=== PATIENT | female | born 1985 | race Caucasian/White ===

== ENCOUNTER 2022-06-21 09:00 | Emergency (ER) | payer BC, SELFPAY ==
[2022-06-21 09:02] VITALS: BP 155/94; PULSE 79; RESP 14; TEMP 35.9; O2SAT 100; BMI 35.2
--- NOTE | 2022-06-21 09:21 | EKG12_ITS ---
Test Reason : Blood Pressure : / mmHG Vent. Rate : 071 BPM Atrial Rate : 071 BPM P-R Int : 194 ms QRS Dur : 084 ms QT Int : 382 ms P-R-T Axes : 013 -28 047 degrees QTc Int : 415 ms Sinus rhythm with marked sinus arrhythmia Otherwise normal ECG Confirmed by OSCAR MOTT, JAMISON ([id number]), greeting card editor JYOTI CEBALLOS ([id number]) on 06/25/2022 11:01:29 AM Referred By: SAMEERA Confirmed By:BJ MOORE MD
--- NOTE | 2022-06-21 09:21 | RAD_ITS ---
STUDY: X-RAY CHEST REASON FOR EXAM: Female, 37 years old. Chest pain TECHNIQUE: Single AP portable view of the chest. COMPARISON: None. FINDINGS: EKG electrodes are seen. The lungs are clear and expanded. There is no demonstrated pleural abnormality. Normal size heart. Normal mediastinum and eulogio. Normal visualized pulmonary arteries. Normal visualized aortic arch and descending thoracic aorta. Normal visualized thoracic spine. Normal visualized ribs, clavicles, and shoulders. There is no demonstrated abnormality of the visualized soft tissue structures of the upper abdomen. RAD/Chest 1 View (Portable) IMPRESSION: Normal x-ray examination of the chest. Electronically Signed: Jesus Rascon MD at 10:04 RUST ,
--- NOTE | 2022-06-21 09:22 | ED.VIS.CHEST ---
HPI History of Present Illness Chief Complaint: Chest Pain Informant: patient Narrative Narrative: 37-year-old female presents to the emergency room with left chest pain after being referred here by urgent care. Patient states for the past month she has had increased into dull digestion and belching seem to get better but now for the past 3 days she has had a pain in her left breast. She has had a prior lump there in the past and saw her [employer] yesterday who is scheduled for mammography. She states that today she went to see her primary care doctor because the pain is radiating around the breast and into the left shoulder. She notes some shortness of breath. She states that because she had not seen her primary care doctor for 2 years they sent her to the urgent care. At the urgent care the PA ordered an EKG and sent her here out of concern. EKG I reviewed was a normal sinus rhythm with no concerning features of ACS. Patient states that nothing seems to make this better or worse. Her mom had a heart attack. [facility] Medical History Back pain Chest pain Endometriosis Migraines Home Medications calcium carbonate 300 mg (750 mg) chewable tablet (Antacid Extra Strength (calcium carb)) 300 mg PO BID 09/12/19 [History Last Taken Unknown] ibuprofen 200 mg capsule 200 mg PO Q6H PRN 09/12/19 [History Last Taken Unknown] loratadine 10 mg capsule 10 mg PO DAILY 09/12/19 [History Last Taken Unknown] Allergy/AdvReac Type Severity Reaction Status Date / Time No Known Allergies Allergy Verified 06/21/22 09:42 Family History Other Diabetes Heart disease Surgical History H/O section History of dilation and curettage History of hysteroscopy Social History Smoking Status: Current every day smoker tobacco type: cigarettes alcohol intake: current alcohol intake frequency: a few times a week Alcohol type: hard liquor ROS ROS ED Constitutional Constitutional ED: Denies chills or weight loss Eyes Eyes: Denies change in vision or diplopia ENT ENT ED: Denies ear pain, rhinorrhea or sore throat Cardiovascular Cardiovascular: Reports chest pain; Denies orthopnea, palpitations or racing heartbeat Respiratory/Chest Respiratory/Chest: Reports dyspnea; Denies cough or orthopnea Gastrointestinal Gastrointestinal: Denies abdominal pain, diarrhea, nausea or vomiting Genitourinary Genitourinary ED: Denies dysuria, hematuria or urinary frequency Musculoskeletal Musculoskeletal: Denies arthralgias or myalgias Integumentary Denies abscess or rash Neurologic Neurologic: Denies headache(s) or weakness Psychiatric Psychiatric: Denies anxiety, depression, suicidal ideation or suicidal thoughts Endocrine Endocrinology: Denies polydipsia, polyphagia or polyuria Allergic/Immunologic Allergic/Immunologic ED: Denies mouth swelling, tongue swelling or urticaria EXAM Physical Exam Const Vital Signs: 06/21/22 09:02 06/21/22 09:40 Temperature 96.7 F L Temperature Source Temporal Pulse Rate 79 Respiratory Rate 14 Respiratory Effort Normal Non-Labored Blood Pressure 155/94 H Blood Pressure Mean 114 Pulse Ox 100 Oxygen Delivery Method Room Air Positive well nourished and well developed General Appearance ED: well developed HEENT Reports normocephalic, head/scalp atraumatic and moist mucous membranes Eyes PERRL and EOMs intact bilaterally Neck no lymphadenopathy, supple and no JVD Resp normal respiratory effort and clear to auscultation bilaterally Cardio regular rate, regular rhythm and no murmurs GI normal to inspection, nondistended, normoactive bowel sounds and non-tender Palpation: soft Back/Spine no CVA tenderness and normal ROM Extremity normal to inspection General Extremety ED: Negative for edema General Extremity: Negative for edema Neuro oriented x3 and CN's II-XII intact bilaterally Sensorium / Orientation: alert Motor Exam: strength 5/5 throughout Psych mental status grossly normal Mood & Affect: Negative for depressed or tearful Skin no rashes or lesions noted and no wounds MDM MDM MDM Narrative Medical decision making narrative: D-dimer and troponin are within normal limits. CBC shows a hemoglobin 11.2. BMP is normal except for glucose of 110. My interpretation of the chest x-ray is no acute process. Her EKG is a sinus rhythm with sinus arrhythmia but there is no concerning features of ACS and she has not had any dysrhythmias on the monitor. From a cardiac standpoint I think she is fine. We will start her on some Protonix for her indigestion/belching. She has an appointment with primary care next Friday Lab Data Attestation: I reviewed the patient's lab results. Labs: Laboratory Results - last 24 hr 06/21/22 06/21/22 06/21/22 09:35 09:35 09:35 WBC 5.8 RBC 4.08 L Hgb 11.2 L Hct 36.3 L MCV 89.0 MCH 27.5 MCHC 30.9 L RDW Std Deviation 45.5 H RDW Coeff of Nadege 14.0 Plt Count 314 MPV 9.8 Immature Gran % (Auto) 0.200 Neut % (Auto) 73.2 H Lymph % (Auto) 17.2 L [place] % (Auto) 7.5 Eos % (Auto) 1.6 Baso % (Auto) 0.3 Absolute Neuts (auto) 4.2 Absolute Lymphs (auto) 0.99 Nucleated RBC % 0 D-Dimer Quant (PE/DVT) 0.30 Sodium 139 Potassium 3.9 Chloride 108 H Carbon Dioxide 25.0 Anion Gap 6 BUN 11 Creatinine 0.65 Estim Creat Clear Calc 88.55 Est GFR (MDRD) Af Amer 131 Est GFR (MDRD) Non-Af 108 BUN/Creatinine Ratio 16.9 Glucose 110 H Calcium 9.4 Troponin I High Sens 4 Radiography Diagnostic Testing: Clinical Impression(s) from Imaging Studies Chest X-Ray 06/21/22 09:21 IMPRESSION: Normal x-ray examination of the chest. Electronically Signed: Jesus Rascon MD at 10:04 EST , EKG Initial EKG: Attestation: I personally reviewed and interpreted this EKG as follows: Comments: Sinus rhythm with a sinus arrhythmia and a ventricular rate of 71 bpm Discharge Plan Triage Chief Complaint: Chest Pain ED Provider: Jn Cheung Dx/Rx/DC Orders Prescriptions: No Action loratadine 10 mg capsule 10 mg PO DAILY ibuprofen 200 mg capsule 200 mg PO Q6H PRN calcium carbonate [Antacid Ext Str (calcium carb)] 300 mg (750 mg) tablet,chewable 300 mg PO BID Primary Care Provider: Elsa Jeter Referrals: Elsa Jeter, [Primary Care Provider] -
[2022-06-21 09:46] LABS: Absolute Lymphocyte Count 0.99 X10^3/uL (0.83-4.51); Absolute Neutrophil Count 4.2 X10^3/uL (2.0-7.7); Basophil# 0.02 X10^3/uL; Basophil% 0.3 % (0-1); Eosinophil# 0.09 X10^3/uL; Eosinophils% 1.6 % (0-5); Hematocrit 36.3 % (37-47); Hemoglobin 11.2 g/dL (12.0-15.0); Lymphocyte # 0.99 X10^3/ul (0.83-4.51); Lymphocyte % 17.2 % (19-41); Mean Corp Hgb Conc 30.9 g/dL (32-36); Mean Corpuscular Hgb 27.5 pg (27.0-32.0); Mean Platelet Vol. 9.8 fl (6.2-12.0); Monocyte# 0.43 X10^3/uL; Monocyte% 7.5 % (0-10); NRBC Flagged by Analyzer 0 % (0-5); Neutrophil # 4.22 X10^3/uL (2.7-7.7); Neutrophil % 73.2 % (47-70); Platelet Count 314 K/mm3 (150-450); RBC Distribution Width SD 45.5 fl (35.1-43.9); Red Blood Count 4.08 M/mm3 (4.2-5.4); White Blood Count 5.8 K/mm3 (4.4-11.0)
[2022-06-21 10:04] LABS: Anion Gap 6 (5-15); BUN 11 mg/dL (7-18); BUN/Creat Ratio 16.9 RATIO (10-20); Calcium,Total 9.4 mg/dL (8.5-10.1); Chloride 108 mmol/L (98-107); Creatinine, Serum 0.65 mg/dL (0.55-1.02); EST Glomerular Filtration Rate 108 mL/min (>60); Est Glom Filt Rate - Afr Amer 131 mL/min (>60); Estimated Creatinine Clearance 88.55 ml/min; Glucose 110 mg/dL (74-106); Potassium 3.9 mmol/L (3.5-5.1); Sodium Level 139 mmol/L (136-145); Troponin-I HS 4 pg/mL (3.0-54.0)
[2022-06-21 10:53] VITALS: BP 112/81; PULSE 62; RESP 17; O2SAT 100
== END 2022-06-21 10:54 | disposition home or self-care (01) ==
PROVIDERS: Emergency Provider Emergency Medicine; PCP Internal Medicine; Visit Provider Emergency Medicine
DX: R07.9 Chest pain, unspecified (principal); N64.4 Mastodynia; R06.02 Shortness of breath; F17.210 Nicotine dependence, cigarettes, uncomplicated; I49.8 Other specified cardiac arrhythmias; K30 Functional dyspepsia
CPT/HCPCS: 71045; 80048; 84484; 85025; 85379; 93005; 99284; A4216

== ENCOUNTER → 2025-03-10 | Outpatient (CLI) | payer BC, SELFPAY ==
--- OUTSIDE RECORDS SUMMARY | 2025-03-10 07:21 | XMS RPT_ITS | CCD ---
Author Organization [facility] Care Team Providers Care Telephone Clerk Telegraph Office Name Role Phone Gilberto Cardozo Unavailable Unavailable Newbill, Gilberto Charles Unavailable Unavailable No Doctor Assigned, Nodr Unavailable Unavail able Juliane, Gilberto Chaidezel Unavailable Unavailable Newbill, Gilberto Charles Unavailable Unavailable No Doctor Assigned, Nodr Unavailable Unavail able Pcp, No Primary Care Provider Unavailtito e PHYSICIAN, NONE Primary Care Physician Unavailab TAMIKO Wagner Attending Provider [phone] Elsa Hines DO Unavailable Gravius STICK WELDER, Alisha Unavailable Unavailable Unavailable Unavailable Angelito Lorenzo Attending Unavailable Jn Cheung Attending Unavailable Elsa Hines Primary Care Unavailable Stephens STICK WELDER, Kayela Unavailable Unavailable Fifi REVENUE INVESTIGATOR, Ladonna Unavailable Unavailable Unavailable Unavailable Slarb REVENUE INVESTIGATOR, Lata Unavailable Unavailable Elsa Hines DO Attending Unavailable Elsa Hines DO Consulting Unavailable Vargas REVENUE INVESTIGATOR, Tom Unavailable Unavailable Unavailable Unavailable DARIUS DRIVER MD Attending Unavailable PHYSICIAN, NONE Primary Care Unavailable PHYSICIAN, NONE Primary Care Unavailable FREEMAN GOLD Attending Shannon black PHYSICIAN, NONE Primary Care Unavailable FREEMAN GOLD Attending DARIUS Davidson MD Attending Unavailable PHYSICIAN, NONE Primary Care Unavailable PHYSICIAN, NONE Primary Care Unavailable RANDEE BENZ MD Attending Unavailable Elsa Hines DO Primary Care Provider ESLA HINES Primary Care Unavailab le Allergies Allergy Classification Reported Allergen(s) Allergy Type Date of Onset Reaction(s) Facility (1 source) No Known Allergies; Translations: [No Known Allergies] Propensity to adverse reactions to drug (disorder) [facility] Repository (1 source) No Known Medication Allergies; Translations: [No Known Medication Allergies] Propensity to adverse reactions to drug (disorder) [facility] Repository (2 sources) Adhesive Bandage 1 Allergy to substance On examination - itchy rash (context-depend ent category) [facility] Comment on above: Patient Comment: Usu ally after 24 hours with bandages on. Medications Current Medications Medication Drug Class(es) Dates Sig (Normalized) Sig (Original) Ascorbic Acid (7 sources) Vitamin C Start: 06-20-2022 Vitamin C qDay, 0 Refill(s) Start Date: 06/20/22 Status: Ordered Ashwaghanda (3 sources) Start: 10-10-2023 Ashwaghanda Ashwaghanda, 0 Refill(s), 85.2 Start Date: 10/10/23 Status: Ordered calcium carbonate 750 mg chewable tablet (1 source) Start: 09-12-2019 take 1 tablet by mouth twice daily Calcium Carbonate (Antacid Ext Str (Calcium Carb)) 300 mg (750 mg) tablet,chewable Active 300 MG PO TWICE A DAY September 12, 2019 12:00am ferrous sulfate (3 sources) Start: 10-10-2023 ferrous sulfate Oral, 0 Refill(s) Start Date: 10/10/23 Status: Ordered Fish Oils (7 sources) Start: 06-20-2022 take 1 dose by mouth once daily [place]-3 Fish Oil Dose : 1,000 mg =, Oral, qDay, 0 Refill(s) Start Date: 06/20/22 Status: Ordered ibuprofen 200 mg oral capsule (14 sources) Nonsteroidal Anti-inflammatory Drug Start: 09-12-2019 take 200 mg by mouth every six hours Ibuprofen Active 200 MG PO EVERY 6 HOURS September 12, 2019 12:00am End: 11-01-2022 ibuprofen 100 mg oral tablet As needed for 0 days Refills: 0 Ordered: 01-Nov-2022 Lata Mcmillan LPN End : 01-Nov-2022 Discontinued MOTRIN, 100MG (P O Tab) As needed for 0 days Refills: 0 Ordered: 14-Jun-2009 Nathaly Corona RN Active loratadine 10 mg oral capsule (1 source) Start: 09-12-2019 take 10 mg by mouth once daily Loratadine Active 10 MG PO DAILY September 12, 2019 12:00am lysine 500 mg oral capsule (3 sources) Start: 10-10-2023 lysine 500 mg oral capsule Dose : 500 mg = 1 cap(s), Oral, BID, # 120 cap(s), 0 Refill(s) Start Date: 10/10/23 Status: Ordered magnesium oxide 250 mg oral tablet (3 sources) Start: 10-10-2023 Magnesium 250 mg tablet Dose : 500 mg = 2 tab(s), Oral, qDay, 0 Refill(s) Start Date: 10/10/23 Status: Ordered Multivitamin preparation (7 sources) Start: 06-20-2022 take 1 tablet by mouth once daily Multivitamin Dose = 1 tab(s), Oral, Daily, 0 Refill(s) Start Date: 06/20/22 Status: Ordered nitrofurantoin, macrocrystals 25 mg / nitrofurantoin, monohydrate 75 mg oral capsule (1 source) Nitrofuran Antibacterial Start: 06-07-2024 End: 06-12-2024 take 1 capsule by mouth twice daily at mealtime nitrofurantoin monohydrate and macrocrystal (MACROBID) 100 mg capsule Take 1 capsule by mouth two times a day with meals for 5 days. 10 capsule 06/07/2024 06/12/2024 Active pantoprazole 40 mg delayed release oral tablet (16 sources) Proton Pump Inhibitor Start: 10-10-2023 take 1 tablet by mouth once daily as needed pantoprazole 40 mg oral enteric coated tablet TAKE 1 TABLET BY MOUTH EVERY DAY NEEDED Start Date: 10/10/23 Status: Ordered Start: 05-13-2023 take 1 tablet by paty th once daily pantoprazole 40 mg oral tablet, delayed release (enteric coated) 1 (one) tablet qd for 0 days Quantity: 30 {Tablet} Refills: 0 Ordered: 13-May-2023 Elsa Hines DO, DO, Kathleen Start : 13-May-2023 Active Start: 04-16-2023 take 1 tablet by paty th once daily pantoprazole 40 mg oral tablet, delayed release (enteric coated) 1 (one) tablet qd for 0 days Quantity: 30 {Tablet} Refills: 0 Ordered: 16-Apr-2023 Elsa Hines DO, DO, Kathleen Start : 16-Apr-2023 Active Start: 11-27-2022 take 1 tablet by paty th once daily pantoprazole 40 mg oral tablet, delayed release (enteric coated) 1 (one) tablet qd for 0 days Quantity: 30 {Tablet} Refills: 3 Ordered: 27-Nov-2022 Elsa Hines DO, DO, Kathleen Start : 27-Nov-2022 Active Start: 08-02-2022 End: 09-06-2022 take 1 tablet by mouth once daily pantoprazole 40 mg oral tablet, delayed release (enteric coated) 1 (one) tablet qd for 0 days Quantity: 30 {Tablet} Refills: 3 Ordered: 06-Sep-2022 Chevy DAWITJennifer Start : 02-Aug-2022 End : 06-Sep-2022 Inactive Start: 06-21-2022 take 1 tablet by paty th once daily Pantoprazole (Protonix) 40 mg tablet,delayed release (DR/EC) Active 40 MG PO DAILY June 21, 2022 12:00am Probiotic (7 sources) Start: 06-20-2022 Probiotic 0 Refill(s) Start Date: 06/20/22 Status: Ordered tranexamic acid 650 mg oral tablet (3 sources) Antifibrinolytic Agent Start: 10-10-2023 tranexamic acid 650 mg oral tablet Dose : 1,300 mg = 2 tab(s), Oral, TID, for a maximum of 5 days during monthly menstruation - for heavy days only, # 60 tab(s), 0 Refill(s), Pharmacy: [id number], Menorrhagia Dysmenorrhea, 152.4, cm, 10/10/23 10:02:00 EDT, Height, kg, 10/10/23 10:02:00 EDT, Dosing Weight Start Date: 10/10/23 Status: Ordered turmeric extract 500 mg oral capsule (7 sources) Start: 06-20-2022 turmeric 500 mg oral capsule 0 Refill(s) Start Date: 06/20/22 Status: Ordered Vitamin D3 (7 sources) Start: 06-20-2022 Vitamin D3 qDay, 0 Refill(s) Start Date: 06/20/22 Status: Ordered Zinc (7 sources) Start: 06-20-2022 take 1 dose by mouth once daily Zinc Dose : 140 mg =, Oral, qDay, 0 Refill(s) Start Date: 06/20/22 Status: Ordered Completed/Discontinued Medications Medication Drug Class(es) Dates Sig (Normalized) Sig (Original) amoxicillin 875 mg / clavulanate 125 mg oral tablet (20 sources) Penicillin-class Antibacterial Start: 10-02-2022 End: 10-09-2022 take 1 tablet by mouth twice daily amoxicillin-pot clavulanate 875-125 mg oral tablet 1 (one) tablet two times daily for 7 days Quantity: 14 {Tablet} Refills: 0 Ordered: 02-Oct-2022 Ladonna Calix LPN Start : 02-Oct-2022 End : 09-Oct-2022 Inactive Start: 11-04-2014 End: 09-24-2019 take 1 tablet by mouth twice daily Amoxicillin-Pot Clavulanate 875-125 MG Oral Tablet 1 (one) Tablet bid for 0 days Quantity: 28 {Tablet} Refills: 0 Ordered: 24-Sep-2019 Alisha Grant CMA Start : 04-Nov-2014 End : 24-Sep-2019 Inactive Start: 06-26-2010 End: 07-10-2010 take 1 tablet by mouth twice daily AUGMENTIN, 875-125MG (Oral Tablet) 1 Tablet bid for 14 days Quantity: 28 {Tablet} Refills: 0 Ordered: 26-Jun-2010 SalinaCira escalona Start : 26-Jun-2010 End : 10-Jul-2010 Inactive ciprofloxacin 500 mg oral tablet (13 sources) Quinolone Antimicrobial Start: 01-25-2014 End: 01-28-2014 take 1 tablet by mouth twice daily CIPROFLOXACIN HCL, 500MG (Oral Tablet) 1 (one) Tablet bid for 3 days Quantity: 6 {Tablet} Refills: 0 Ordered: 25-Jan-2014 Simeon Cira Start : 25-Jan-2014 End : 28-Jan-2014 Inactive 24 hr cyclobenzaprine hydrochloride 15 mg extended release oral capsule (13 sources) Muscle Relaxant Start: 06-14-2009 End: 06-26-2010 take 1-2 capsules by mouth once daily as needed AMRIX, 15MG (Oral Capsule Extended Release 24 Hour) 1-2 Capsule ER 24HR Daily prn for 0 days Quantity: 20 {Capsule_ER_24HR} Refills: 0 Ordered: 26-Jun-2010 Cookie Gonzalez LPN Start : 14-Jun-2009 End : 26-Jun-2010 Inactive escitalopram 10 mg oral tablet (13 sources) Serotonin Reuptake Inhibitor Start: 03-16-2010 End: 06-26-2010 take 1 tablet by mouth once daily at bedtime LEXAPRO, 10MG (Oral Tablet) 1 (one) Tablet qhs for 0 days Quantity: 30 {Tablet} Refills: 3 Ordered: 26-Jun-2010 Cookie Gonzalez LPN Start : 16-Mar-2010 End : 26-Jun-2010 Inactive 12 hr fexofenadine hydrochloride 60 mg / pseudoephedrine hydrochloride 120 mg extended release oral tablet (13 sources) alpha-Adrenergic Agonist, Histamine-1 Receptor Antagonist Start: 06-26-2010 End: 08-02-2022 take 1 tablet by mouth every twelve hours, then take 1 tablet by mouth every twelve hours fexofenadine-pseu doephedrine 60-120 mg oral Tablet, Extended Release 12 hr 1 Tablet ER 12HR Tablet ER 12HR q12 hrs for 0 days Quantity: 20 {Tablet_ER_12HR} Refills: 0 Ordered: 02-Aug-2022 Chevyjohan PASTORJennifer Start : 26-Jun-2010 End : 02-Aug-2022 Inactive furosemide 20 mg oral tablet (5 sources) Loop Diuretic Start: 11-07-2022 take 1 tablet by mouth once daily Lasix 20 mg oral tablet 1 (one) tablet daily for 0 days Quantity: 3 {Tablet} Refills: 0 Ordered: 07-Nov-2022 Tom Kaye LPN Start : 07-Nov-2022 Active Iron (7 sources) Iron (ferrous sulfate) 325 mg (65 mg iron) oral tablet (325 mg (65 mg iro) Active naproxen 500 mg oral tablet (13 sources) Nonsteroidal Anti-inflammatory Drug Start: 06-14-2009 End: 06-26-2010 take 1 tablet by mouth twice daily NAPROSYN, 500MG (Oral Tablet) 1 (one) Tablet Twice daily for 0 days Quantity: 30 {Tablet} Refills: 0 Ordered: 26-Jun-2010 Cookie Gonzalez LPN Start : 14-Jun-2009 End : 26-Jun-2010 Inactive triamcinolone acetonide 0.055 mg/actuat metered dose nasal spray (13 sources) Corticosteroid Start: 06-26-2010 End: 08-02-2022 take 2 puff(s) by inhalation once daily Nasacort AQ 55 mcg/ACT intranasal Inhaler 2 (two) Puff(s) Puff(s) daily for 0 days Quantity: 1 {Aerosol_Soln} Refills: 0 Ordered: 02-Aug-2022 Jennifer Reece CMA Start : 26-Jun-2010 End : 02-Aug-2022 Discontinued Start: 06-26-2010 NASACORT AQ, 5 5MCG/ACT (Nasal Aerosol Solution) 2 (two) Puff(s) Puff(s) daily for 0 days Quantity: 1 {Aerosol_Soln} Refills: 0 Ordered: 04-Nov-2014 Eunice Aragon Start : 26-Jun-2010 Active eyikqkd-foqe-angtu-oreg-capr yl 100 mg-150 mg- 50 mg-150 mg oral capsule (12 sources) rxpjuvv-ular-hxz eh-qgcd-pgvqyx 100 mg-150 mg- 50 mg-150 mg oral capsule Once a day. (100 mg-150 mg- 50 mg-150) Active valACYclovir 1000 mg oral ta blet (1 source) Herpesvirus Nucleoside Analog DNA Polymerase Inhibitor, Herpes Simplex Virus Nucleoside Analog DNA Polymerase Inhibitor, Herpes Zoster Virus Nucleoside Analog DNA Polymerase Inhibitor S t a r t : 0 3 - 0 1 - 2 0 2 0 E n d : 0 3 - 0 8 - 2 0 2 0 take 1000 mg by mouth three times daily Valacyclovir Discontinued 1000 MG PO THREE TIMES A DAY 31 01September 12, 2019 12:00am September 19, 2019 12:09am zinc acetate 50 mg oral caps ule (12 sources) take 1 capsule by mouth once daily zinc acetate 50 mg (zinc) oral capsule Once a day. (50 mg (zinc)) Active Problems Active Problems Problem Classification Problem Date Documented Date Episodic/Chronic Acute posthemorrhagic anemia (20 sources) Acute posthemorrhagic anemia; Translations: [Anemia due to acute blood loss] 08-02-2022 Episodic Comment on above: heavy periods super plus tampons in an hour in beg - today 5- days Administrative/social admission (20 sources) Administrative reason for encounter; Translations: [Other general medical examination for administrative purposes] 09-24-2019 Episodic Anxiety disorders (20 sources) Anxiety; Translations: [Anxiety] 09-24-2019 Chronic Comment on above: supporting anx with adrenals and it was doing better but bad again Outside Source Comme nt: Comment on above: supporting anx with adrenals and it was doing better but bad again Benign neoplasm of uterus (20 sources) Uterine leiomyoma; Translations: [Uterine fibroid] 09-24-2019 Episodic Comment on above: see data security administrator Conditions associated with dizziness or vertigo (20 sources) Dizziness; Translations: [Dizziness] 09-24-2019 Episodic Diseases of mouth; excluding dental (20 sources) Sialoadenitis; Translations: [Sialoadenitis] 09-24-2019 Episodic Comment on above: parotiditis vs molar painmild tenderness left parotid Endometriosis (20 sources) Endometriosis (clinical); Translations: [Endometriosis] 09-24-2019 Chronic Comment on above: sees Dr Benz Esophageal disorders (20 sources) Gastroesophageal reflux disease; Translations: [Gastro-esophageal reflux disease without esophagitis] Onset: 06-21-2022 Chronic Genitourinary symptoms and ill-defined conditions (20 sources) Increased frequency of urination; Translations: [Urinary frequency] Resolved: 09-24-2019 09-24-2019 Episodic Headache; including migraine (20 sources) Headache; Translations: [Headache] 09-24-2019 Episodic Comment on above: managed with chiro c are - stable Menstrual disorders (20 sources) Menometrorrhagia; Translations: [Menometrorrhagia (Renamed from Excessive and frequent menstruation with irregular cycle)] Onset: 10-10-2023 09-24-2019 Chronic Nonspecific chest pain (2 sources) Chest pain; Translations: [Chest pain, unspecified] Onset: 07-04-2022 Episodic Other lower respiratory disease (12 sources) Apnea; Translations: [Witnessed episode of apnea] 01-03-2023 Episodic Comment on above: ordered a sleep stud y Outside Source Comme nt: Comment on above: ordered a sleep study Other nervous system disorders (1 source) Anesthesia of skin; Translations: [Anesthesia of skin] Episodic Other nervous system disorders (7 sources) Numbness of upper limb 06-20-2022 Episodic Other nutritional; endocrine; and metabolic disorders (20 sources) Body mass index 30+ - obesity; Translations: [BMI 32.0-32.9,adult] Resolved: 09-06-2022 09-24-2019 Chronic Other nutritional; endocrine; and metabolic disorders (2 sources) Body mass index (BMI) 36.0-36.9, adult; Translations: [Body mass index [BMI] 36.0-36.9, adult] Onset: 10-10-2023 Chronic Other nutritional; endocrine; and metabolic disorders (20 sources) Weight gain; Translations: [Weight gain] 08-02-2022 Episodic Comment on above: tsh 22 normalhaic 12-22 5.4 tsh 07-04 normalhaic 12-22 5.4do fei for tracking - try leptin supplement and adrenal support Other upper respiratory infections (20 sources) Acute sinusitis; Translations: [Acute Sinusitis (Renamed from Acute infection of nasal sinus)] 09-24-2019 Episodic Otitis media and related conditions (20 sources) Dysfunction of eustachian tube; Translations: [Eustachian tube dysfunction] Resolved: 09-24-2019 09-24-2019 Episodic Ovarian cyst (20 sources) Cyst of ovary; Translations: [Cyst of ovary, unspecified laterality] 09-24-2019 Episodic Comment on above: see data security administrator Residual codes; unclassified (20 sources) Family history of diabetes mellitus; Translations: [Family history of diabetes mellitus] 09-24-2019 Episodic Residual codes; unclassified (20 sources) Non-smoker; Translations: [Non-smoker] 09-24-2019 Episodic Residual codes; unclassified (10 sources) Edema; Translations: [Edema] 01-03-2023 Episodic Spondylosis; intervertebral disc disorders; other back problems (20 sources) Pain in thoracic spine; Translations: [Pain in thoracic spine] Resolved: 09-24-2019 09-24-2019 Episodic Unclassified (20 sources) Viral infection (20 sources) Herpes zoster; Translations: [Shingles] Resolved: 08-02-2022 09-24-2019 Episodic Past or Other Problems Problem Classification Problem Date Documented Date Episodic/Chronic Nonmalignant breast conditions (15 sources) Pain of breast; Translations: [Mastodynia] Onset: 10-10-2023 Episodic Other screening for suspected conditions (not mental disorders or infectious disease) (20 sources) Electrocardiogram abnormal; Translations: [Abnormal electrocardiogram [ECG] [EKG]] Onset: 06-21-2022 Episodic Otitis media and related conditions (13 sources) Otitis media and related conditions Unclassified (13 sources) Abortions/Miscarriages; Translations: [Abortions/Miscarriages ] 09-24-2019 Comment on above: Misc. 2006 Unclassified (13 sources) Deliveries (Parity); Translations: [Deliveries (Parity)] 09-24-2019 Comment on above: 1 Unclassified (13 sources) NECK, NOS 09-24-2019 Comment on above: Fell off horse onto neck Unclassified (13 sources) Pregnancies (); Translations: [Pregnancies ()] 09-24-2019 Comment on above: 1 Unclassified (13 sources) Tear duct sx 1983, born without tear ducts 09-24-2019 Unclassified (16 sources) Unspecified Diagnosis 10-02-2022 Results Test Name Value Interpretation Reference Range Facility Bacteria Ur Culton 4 Bacteria identified Cx Nom (U) ORGANISM ID: 1 10,000 -<50,000 CFU/ml Normal urogenital lotus Normal [facility] Comment on above: Performed By: #### 6 30-4 #### [facility] CLIA [id number] [address] [place] [address] STATES OF [facility] CNOVon 06-07-2024 CNOV Office Visit (UCWSTR ) HONORIO SUAREZ ([id number]) 1985 F Date Time Provider Department 06/07/24 6:00 PM DHAVAL GONZALEZ [facility]WSTR During your visit today, we recorded the following information about you: Temperature Pulse Respiration Blood pressure 98.9 degrees 78/minute 16/minute 122/72 Weight 86.5 kg Dhaval Gonzalez PA-C 06/07/2024 6:44 PM Signed This note was created using NoteWriter. Subjective Honorio Suarez is a 39 year old female. HPI Patient presents with urinary frequency and blood in urine over the past 3 days. Denies abdominal pain. No history of kidney stones. No flank pain or back pain. Denies dysuria. She states she also has endometriosis and sometimes will spot from that. She denies chance of . No fever. No vaginal itching or discharge. Review of Systems Genitourinary: Positive for frequency and hematuria. Negative for dysuria, flank pain, pelvic pain, urgency, vaginal bleeding, vaginal discharge and vaginal pain. Musculoskeletal: Negative. All other systems reviewed and are negative. No past medical history on file. Current Outpatient Medications Medication Sig Dispense Refill nitrofurantoin monohydrate and macrocrystal (MACROBID) 100 mg capsule Take 1 capsule by mouth two times a day with meals for 5 days. 10 capsule 0 No current facility-administered medications for this visit. No past surgical history on file. No family history on file. Social History Tobacco Use Smoking status: Some Days Objective BP 122/72 Pulse 78 Temp 37.2 ?C (98.9 ?F) Resp 16 Wt 86.5 kg (190 lb 11.2 oz) LMP 11/28/2016 SpO2 98% Physical Exam Vitals reviewed. Constitutional: Appearance: Normal appearance. HENT: Head: Normocephalic and atraumatic. Cardiovascular: Rate and Rhythm: Normal rate and regular rhythm. Heart sounds: Normal heart sounds. Pulmonary: Effort: Pulmonary effort is normal. Breath sounds: Normal breath sounds. Abdominal: Palpations: Abdomen is soft. Tenderness: There is abdominal tenderness (mild suprapubic ttp). Skin: General: Skin is warm and dry. Neurological: Mental Status: She is alert. Assessment and Plan ASSESSMENT/PLAN: 1. Urinary frequency - ICD9: 788.41, ICD10: R35.0 acute - UA positive for jacky esterase - Send urine for culture - Begin treatment with Macrobid 100 mg BID for 5 days. Can d/c if urine culture negative - UA DIP, URINE (POC) - URINE CULTURE Dhaval Gonzalez PA-C Allergies As of Date: 06/07/2024 (No Known Allergies) Date Reviewed: 06/07/2024 Reviewed by: Shirley Cobb MA - Fully Assessed Reason for Visit: Urinary Frequency [1086] Cmt: x 3 days Primary Visit Diagnosis:Urinary frequency [R35.0] Order(s):UA DIP, URINE (POC) [4948990] Order #: [id number]. #:[id number] URINE CULTURE [SQURCUL] Order #: [id number]. #:[id number] nitrofurantoin monohydrate and macrocrystal (MACROBID) 100 mg capsuleTake 1 capsule by mouth two times a day with meals for 5 days.Disp: 10 capsuleRfl: 0 Prescriptions as of 06/07/2024 - nitrofurantoin monohydrate and macrocrystal (MACROBID) 100 mg capsule Take 1 capsule by mouth two times a day with meals for 5 days. Problem List As Of Date: 06/07/2024 (None) Prescriptions ordered this encounter Disp Refills Start End NITROFURANTOIN MONOHYDRATE AND MACROCR* 10 c* 0 06/07/2024 06/12/2024 Route: ORAL Sig: Take 1 capsule by mouth two times a day with meals for 5 days. Encounter Status:Closed by DHAVAL GONZALEZ on 06/07/24 Normal [facility] UA DIP, URINE (POC)on 2023 BILIRUBIN UA (POCT) Negative Negative [facility] CLARITY UA (POCT) Clear [facility] COLOR UA (POCT) Yellow [facility] GLUCOSE UA (POCT) Negative Negative mg/dL [facility] Hemoglobin Ql (U) Negative Negative [facility] Interpretation and review of laboratory results Abnormal [facility] KETONE UA (POCT) Negative Negative mg/dL [facility] LEUKOCYTES UA (POCT) Small Abnormal Negative [facility] NITRITE UA (POCT) Negative Negative [facility] PH UA (POCT) 5.5 4.5 - 8.0 [facility] Protein Ql (U) Negative Negative mg/dL [facility] SPECIFIC GRAVITY UA (POCT) 1.025 1.005 - 1.030 [facility] UROBILINOGEN UA (POCT) 0.2 Normal E.U./dL [facility] Location:[facility], [address] [place] [address], [place], [place], [id number] [place] [address] POINT OF CARE [facility] US BREAST RIGHT LIMITEDon BREAST RIGHT LIMITED ORIGINAL FROM: [facility] [address] [place] [address] PROCEDURE FOR: HONORIO VeronicaCharisma THIBODEAUXMIRIAN [address] [place] [address] Home: PID#: [id number] Exam#: [id number] : 1985 Age: 38 TO: FREEMAN MARTINEZ APRN [place] [phone] Fax: NO FAX EXAMINATION: ULTRASOUND OF THE RIGHT BREAST 01/01/2024 8:39 am TECHNIQUE: Color flow and real-time targeted ultrasound of the 1 o'clock and 9 o'clock were performed. COMPARISON: Ultrasound June 25, 2023, July 19, 2022, mammogram September 05, 2023 HISTORY: ORDERING SYSTEM PROVIDED HISTORY: Reason for Exam: f/u right breast mass FINDINGS: There are numerous simple and complicated cysts within the regions scanned which are outlined on the technologist's worksheet. The largest complicated cyst measures up to 1.2 cm and is located at 1-2 o'clock. The largest simple cyst measures up to 1.5 cm and is located at 9 o'clock. IMPRESSION: Numerous simple and complicated cysts which appear benign. These require no further follow-up. The patient may return to her annual screening mammogram schedule. BIRADS: BI-RADS: 2: Benign RECALL: return to screening RECALL TYPE: mammo LETTER SENT: Normal BI-RADS 1 and 2 Interpreted by: Millicent Lorenzo MD Preliminary Report By: Millicent Lorenzo MD Electronically signed By Millicent Lorenzo MD Dictated Date: 01/02/2024 5:49:32 AM Prelim Date: 01/02/2024 5:59:18 AM Sign Date: 01/02/2024 5:59:18 AM Ordering Provider: FREEMAN MARTINEZ CLINICAL: 6 MONTHS FOLLOW-UP RIGHT BREAST CYSTS. Nurse Gynecology: CLIFF RIOS [facility] letter sent: Normal BI-RADS 1 and 2 Ultrasound BI-RADS: 2 Benign Normal [facility] ([place]) Business Resiliency Manager Cytology Reporton 2023 Business Resiliency Manager Cytology Report . Pathology Reports Accession: Collected Date/Time: Received Date/Time: Pathologist: [id number] 10/10/2023 10:44 EDT 10/10/2023 18:00 EDT Business Resiliency Manager Cytology Report SPECIMEN: Specimen Description: Liquid Prep w/ HPV Specimen: Cervical/Endocervical Screening or Diagnostic: Screening RELEVANT HISTORY: LMP: 10/05/23 SPECIMEN ADEQUACY: SATISFACTORY FOR EVALUATION Endocervical/Transform ational zone component present INTERPRETATION/RESULTS : NEGATIVE FOR INTRAEPITHELIAL LESION OR MALIGNANCY HIGH RISK HPV TESTING: Event Code Result HPV Interp See Interp HPVN HPV Interp Text: High Risk HPV Typing: NEGATIVE HPV types 16, 18, 31, 33, 35, 39, 45, 51, 52, 56, 58, 59, 66 and 68 DNA were undetectable or below the pre-set threshold. The ahsan High-Risk HPV DNA Test is not intended for use as a screening device for Pap normal women under age 30 and is not intended to substitute for regular Pap screening. The ahsan High-Risk HPV DNA Test is designed to augment existing methods for the detection of cervical disease and should be used in conjunction with clinical information derived from other diagnostic and screening tests, physical examinations and full medical history in accordance with appropriate patient management procedures. NOTE: A negative result does not preclude the presence of HPV infection because results depend on adequate specimen collection, absence of inhibitors and sufficient DNA to be detected. As of: 10/17/23 11:36 EDT COMMENT: This Pap Test was successfully processed and evaluated with the assistance of the [employer] ThinPrep Test Imaging System. Pathology Reports Accession: Collected Date/Time: Received Date/Time: Pathologist: [id number] 10/10/2023 10:44 EDT 10/10/2023 18:00 EDT Electronically Signed by Pathology report verified by [facility] Screened by: KK Electronically signed by Alva GAMA (ASCP) Sign-Out Date: 10/17/2023 11:36 Performing Lab: [facility], [address] [place] [address] Pathology Dept Disclaimer The Pap test is a screening test for cervical cancer. As evidenced by published data, it is subject to both inherent false negative and false positive results. Your patient's results should be interpreted in context with pertinent clinical history including gynecological examination. Normal [facility] ([place]) HPVon 10-15-2023 HPV Interp Normal See Interp HPVN [facility]) Comment on above: Order Comment: Order placed by AP_HPV_ORDER rule from [id number] Result Comment: High Risk HPV Typing: NEGATIVE HPV types 16, 18, 31, 33, 35, 39, 45, 51, 52, 56, 58, 59, 66 and 68 DNA were undetectable or below the pre-set threshold. The ahsan High-Risk HPV DNA Test is not intended for use as a screening device for Pap normal women under age 30 and is not intended to substitute for regular Pap screening. The ahsan High-Risk HPV DNA Test is designed to augment existing methods for the detection of cervical disease and should be used in conjunction with clinical information derived from other diagnostic and screening tests, physical examinations and full medical history in accordance with appropriate patient management procedures. NOTE: A negative result does not preclude the presence of HPV infection because results depend on adequate specimen collection, absence of inhibitors and sufficient DNA to be detected. See Inter HPVN Performed By: #### H PV #### [place] [address] HPV Source Cervix Normal [facility] ([place]) Comment on above: Order Comment: Order placed by AP_HPV_ORDER rule from [id number] Performed By: #### H PV #### [place] [address] MA MAMMOGRAM DIAGNOSTIC BILA TERAL W/TOMOon 09-05-2023 MA MAMMOGRAM DIAGNOSTIC BILATERAL W/ALFREDO ORIGINAL FROM: [place] [address] PROCEDURE FOR: HONORIO SUAREZ [address] [place] [address] Home: PID#: [id number] Exam#: [id number] : 1985 Age: 38 TO: DARIUS DRIVER MD [address] [place] [address] Fax: NO FAX EXAMINATION: DIAGNOSTIC BILATERAL MAMMOGRAM WITH TOMOSYNTHESIS, 09/05/2023 10:19 am TECHNIQUE: Tomosynthesis was performed as part of the diagnostic bilateral mammogram. 2D standard and 3D tomosynthesis combination imaging performed. Current study was also evaluated with a Computer Aided Detection (CAD) system. COMPARISON: June 25, 2023, July 19, 2022, April 09, 2019, April 24, 2018 HISTORY: ORDERING SYSTEM PROVIDED HISTORY: Reason for Exam: Breast Cancer Screening FINDINGS: BREAST DENSITY: Heterogeneously dense In the right breast at 12-11 o'clock anterior to middle depth, the previously seen 1 cm mass is present but better appreciated on the prior exam. No other significant masses, calcifications, or other findings. IMPRESSION: Mass in the right breast at 12-11 o'clock anterior to middle depth present but better appreciated on the prior exam. Please note that the patient is due for a follow-up right breast ultrasound in January 01, 2024. No suspicious mammographic finding in the left breast. BIRADS: MAMMOGRAM BI-RADS: 3: Probably benign RECALL: 4 month follow-up RECALL TYPE: Right US LETTER SENT: Probably Benign BI-RADS 3 Interpreted by: Larissa Padilla Preliminary Report By: Larissa Padilla Electronically signed By Larissa Padilla Dictated Date: 09/05/2023 5:13:24 PM Prelim Date: 09/05/2023 5:19:58 PM Sign Date: 09/05/2023 5:19:58 PM Ordering Provider: DARIUS DRIVER CLINICAL: RIGHT BREAST CYST. Nurse Gynecology: OBINNA CROSS RT(R)(M)(CT) letter sent: Probably Benign BI-RADS 3 Mammogram BI-RADS: 3 Probably benign Normal [facility] ([place]) US BREAST RIGHT LIMITEDon US BREAST RIGHT LIMITED ORIGINAL FROM: [place] [address] PROCEDURE FOR: HONORIO SUAREZ [address] [place] [address] Home: PID#: [id number] Exam#: [id number] : 1985 Age: 38 TO: DARIUS DRIVER MD [address] [place] [address] Fax: NO FAX EXAMINATION: ULTRASOUND OF THE 06/25/2023 9:25 am TECHNIQUE: Color flow and real-time targeted ultrasound of the were performed. COMPARISON: 07/19/2022 right breast ultrasound HISTORY: ORDERING SYSTEM PROVIDED HISTORY: Reason for Exam: Six-month follow-up right breast mass FINDINGS: There are 2 slightly complex cystic areas seen in the right breast, 1 is at 1 o'clock 2 cm from the nipple measuring 7 x 7 x 5 mm, the other is near at measuring 7 x 9 x 4 mm. There is no vascularity. These findings are slightly less prominent than the prior study. IMPRESSION: No significant change in the cystic areas most likely related to complex cysts. Follow-up ultrasound in 6 months is recommended to document stability . Patient is due for bilateral mammography in July 2023. BIRADS: MAMMOGRAM BI-RADS: 3: Probably benign RECALL: 6 month follow-up RECALL TYPE: Right US LETTER SENT: Probably Benign BI-RADS 3 Interpreted by: Tho White MD Preliminary Report By: Tho White MD Electronically signed By Tho White MD Dictated Date: 06/25/2023 10:18:51 AM Prelim Date: 06/25/2023 10:29:28 AM Sign Date: 06/25/2023 10:29:28 AM Ordering Provider: DARIUS DRIVER CLINICAL: 6 MONTHS FOLLOW-UP. Nurse Gynecology: KYLER MARTIN RT,RDMS,RVT,RDCS letter sent: Probably Benign BI-RADS 3 Ultrasound BI-RADS: 3 Probably benign Normal [facility] ([place]) CBC, PLATELETS & AUT DIFF ([id number])Ordered By: Groutman on 08-02-2022 Basophils (Bld) [#/Vol] 0.0 10*3/uL Normal 0.0-0.2 [facility] Work Phone: Comment on above: PATIENT WAS FASTINGP ERFORMED BY: ERNESTO [facility] Drmzyv9825 [facility] [id number] Basophils/100 WBC (Bld) 1 % Normal [facility]; [facility] Work Phone: Comment on above: PATIENT WAS FASTINGP ERFORMED BY: CB LabRawbots6370 [address] [facility] [place] [id number] Eosinophils (Bld) [#/Vol] 0.1 10*3/uL Normal 0.0-0.4 [facility]; [facility] Work Phone: Comment on above: PATIENT WAS FASTINGP ERFORMED BY: ERNESTO Valentine Vhplpk3947 [address] [facility] [place] [id number] Eosinophils/100 WBC (Bld) 2 % Normal [facility]; [facility] Work Phone: Comment on above: PATIENT WAS FASTINGP ERFORMED BY: [facility] Rlpzfm3266 [address] [facility] [id number] Erythrocyte distribution width (RBC) [Ratio] 13.1 % Normal 11.7-15.4 [facility]; [facility] Work Phone: Comment on above: PATIENT WAS FASTINGP ERFORMED BY: [facility] Fplmlz7554 [address] [facility] [id number] Hematocrit (Bld) [Volume fraction] 35.6 % Normal 34.0-46.6 [facility]; [facility] Work Phone: Comment on above: PATIENT WAS FASTINGP ERFORMED BY: Serge Mrrvpg8489 [address] [facility] [id number] Hemoglobin (Bld) [Mass/Vol] 11.2 g/dL Normal 11.1-15.9 [facility]; [facility] Work Phone: Comment on above: PATIENT WAS FASTINGP ERFORMED BY: [facility] Lpcoox9680 [address] [facility] [id number] Immature granulocytes (Bld) [#/Vol] 0.0 10*3/uL Normal 0.0-0.1 [facility]; [facility] Work Phone: Comment on above: PATIENT WAS FASTINGP ERFORMED BY: [facility] Ntewik4796 [address] [place] [id number] Immature granulocytes/100 WBC (Bld) 0 % Normal [facility]; [facility] Work Phone: Comment on above: PATIENT WAS FASTINGP ERFORMED BY: [facility] Hmhaor5133 [address] RoadDublin [place] [id number] Lymphocytes (Bld) [#/Vol] 1.2 10*3/uL Normal 0.7-3.1 [facility]; [facility] Work Phone: Comment on above: PATIENT WAS FASTINGP ERFORMED BY: LabcoKindred Hospital at WayneTvbgxq3633 [address] RoadDublin [place] [id number] Lymphocytes/100 WBC (Bld) 22 % Normal [facility]; [facility] Work Phone: Comment on above: PATIENT WAS FASTINGP ERFORMED BY: [facility] Aviusi0827 [address] [place] [id number] MCH (RBC) [Entitic mass] 26.7 pg Normal 26.6-33.0 [facility]; [facility] Work Phone: Comment on above: PATIENT WAS FASTINGP ERFORMED BY: LabKalamazoo Psychiatric Hospital6370 [address] RoadCarePartners Rehabilitation Hospital [id number] MCHC (RBC) [Mass/Vol] 31.5 g/dL Normal 31.5-35.7 [facility]; [facility] Work Phone: Comment on above: PATIENT WAS FASTINGP ERFORMED BY: LabcoKindred Hospital at WayneHlvovh5018 [address] [facility] [place] [id number] MCV (RBC) [Entitic vol] 85 fL Normal 79-97 [facility]; [facility] Work Phone: Comment on above: PATIENT WAS FASTINGP ERFORMED BY: [facility] Ximead4105 [address] [facility] [place] [id number] Monocytes (Bld) [#/Vol] 0.4 10*3/uL Normal 0.1-0.9 [facility]; [facility] Work Phone: Comment on above: PATIENT WAS FASTINGP ERFORMED BY: [facility] Motfru8556 [address] RoadDublin [place] [id number] Monocytes/100 WBC (Bld) 8 % Normal [facility]; [facility] Work Phone: Comment on above: PATIENT WAS FASTINGP ERFORMED BY: RENESTO [facility] Qvvhfv1974 [address] RoadDublin [place] [id number] Neutrophils (Bld) [#/Vol] 3.6 10*3/uL Normal 1.4-7.0 [facility]; [facility] Work Phone: Comment on above: PATIENT WAS FASTINGP ERFORMED BY: ERNESTO [facility] Kxexio5549 [address] RoadDublin [place] [id number] Neutrophils/100 WBC (Bld) 67 % Normal [facility]; [facility] Work Phone: Comment on above: PATIENT WAS FASTINGP ERFORMED BY: ERNESTO [facility] Vzxhhc2710 [address] RoadDublin [place] [id number] Platelets (Bld) [#/Vol] 303 10*3/uL Normal 150-450 [facility]; [facility] Work Phone: Comment on above: PATIENT WAS FASTINGP ERFORMED BY: ERNESTO [facility] Uwhpzr1106 [address] RoadDublin [place] [id number] RBC (Bld) [#/Vol] 4.19 10*6/uL Normal 3.77-5.28 [facility]; [facility] Work Phone: Comment on above: PATIENT WAS FASTINGP ERFORMED BY: ERNESTO [facility] Xpdumz0555 [address] RoadDublin [place] [id number] WBC (Bld) [#/Vol] 5.3 10*3/uL Normal 3.4-10.8 [facility]; [facility] Work Phone: Comment on above: PATIENT WAS FASTINGP ERFORMED BY: ERNESTO [facility] Ucaptp6108 [address] RoadDublin [place] [id number] FERRITIN ([id number])Ordered By: Groutman on 08-02-2022 Ferritin [Mass/Vol] 10 ng/mL Abnormal 15-150 Compr ensive [facility]; [facility] Work Phone: Comment on above: PATIENT WAS FASTINGP ERFORMED BY: ERNESTO [facility] Rexmqm9174 [address] RoadDublin [place] [id number] IRON BINDING CAPACITY (TIBC) ([id number])Ordered By: Groutman on 08-02-2022 Iron [Mass/Vol] 40 ug/dL Normal 27-159 Comprehen [facility]; [facility] Work Phone: Comment on above: PATIENT WAS FASTINGP ERFORMED BY: ERNESTO [facility] Nhdxme7811 [address] RoadDublin [place] [id number] Iron binding capacity [Mass/Vol] 357 ug/dL Normal 250-450 Comprehensiv e Internal Medicine; [facility] Work Phone: Comment on above: PATIENT WAS FASTINGP ERFORMED BY: CB [facility] Fgjkmy9907 [address] RoadDublin [place] [id number] Iron binding capacity.unsaturated [Mass/Vol] 317 ug/dL Normal 131-425 [facility]; [facility] Work Phone: Comment on above: PATIENT WAS FASTINGP ERFORMED BY: CB [facility] Vvvbzc0748 [address] RoadDublin [place] [id number] Iron saturation [Mass fraction] 11 % Abnormal 15-55 [facility]; [facility] Work Phone: Comment on above: PATIENT WAS FASTINGP ERFORMED BY: CB [facility] Rphhjc5450 [address]Dublin [place] [id number] LDH (LD) (LACTATE DEHYDROGEN ASE) ([id number])Ordered By: Groutman on 08-02-2022 LDH [Catalytic activity/Vol] 153 U/L Normal 119-226 [facility]; [facility] Work Phone: Comment on above: PATIENT WAS FASTINGP ERFORMED BY: CB [facility] Lprcjw2665 [address] RoadDublin [place] [id number] LIPID PANEL (06604)Ordered B y: Groutman on 08-02-2022 Cholesterol [Mass/Vol] 195 mg/dL Normal 100-199 [facility]; [facility] Work Phone: Comment on above: PATIENT WAS FASTINGP ERFORMED BY: CB [facility] Dufmsu5288 [address] RoadDublin [place] [id number] Cholesterol in HDL [Mass/Vol] 50 mg/dL Normal [facility]; [facility] Work Phone: Comment on above: PATIENT WAS FASTINGP ERFORMED BY: ERNESTO Sarahramsey PradhanNtcflo[address] [facility] [place] [id number] Triglyceride [Mass/Vol] 55 mg/dL Normal 0-149 [facility]; [facility] Work Phone: Comment on above: PATIENT WAS FASTINGP ERFORMED BY: ERNESTO Labbrooklynmary kate Elajtp[address] [facility] [place] [id number] LIPID PANEL (71711) 10 mg/dL Normal 5-40 Compr ensive [facility]; [facility] Work Phone: Comment on above: PATIENT WAS FASTINGP ERFORMED BY: ERNESTO Sergemary kate PradhanVkzgzj8565 [address]bl[address] [place] [id number] LIPID PANEL (38187) 135 mg/dL Abnormal 0-99 Compr ensive [facility]; [facility] Work Phone: Comment on above: PATIENT WAS FASTINGP ERFORMED BY: ERNESTO Pradhanlin6370 [facility] [id number] LIPID PANEL (88585) 2.7 {ratio} Normal 0.0-3.2 Comp [facility]; [facility] Work Phone: Comment on above: LDL/HDL Ratio Men Wo men 1/2 Avg.Risk 1.0 1.5 Avg.Risk 3.6 3.2 2X Avg.Risk 6.2 5.0 3X Avg.Risk 8.0 6.1 PATIENT WAS FASTINGP ERFORMED BY: ERNESTO Pradhanlin6370 [facility] [id number] RETICULOCYTE COUNT MANU ([id number] [id number])Ordered By: Groutman on 08-02-2022 Reticulocytes/100 RBC (Bld) 1.1 % Normal 0.6-2.6 [facility]; [facility] Work Phone: Comment on above: PATIENT WAS FASTINGP ERFORMED BY: ERNESTO [facility] Hivhrn[address] [facility] [id number] VITAMIN B-12 (CYANOCOBALAMIN ) ([id number])Ordered By: Groutman on 08-02-2022 Cobalamin (Vitamin B12) [Mass/Vol] 777 pg/mL Normal 232-1245 [facility]; [facility] Work Phone: Comment on above: PATIENT WAS FASTINGP ERFORMED BY: ERNESTO [facility] Ckhehx[address]28 [address] [facility] [id number] Lead EKGon 06-21-2022 12 Lead EKG [facility] [address] [place] [address] 12 Lead EKG 06/21/2215 MR#: [id number] Acct: [id number] Name: HONORIO SUAREZ Rep #: [id number] : 1985 37 From: Chantal Rodriguez MD Attending Dr: Status: DEP ER Ordering Dr: Jn Cheung DO Date: 06/21/22 Location: ED Sex: F C Admitted: Test Reason : Blood Pressure : / mmHG Vent. Rate : 071 BPM Atrial Rate : 071 BPM P-R Int : 194 ms QRS Dur : 084 ms QT Int : 382 ms P-R-T Axes : 013 -28 047 degrees QTc Int : 415 ms Sinus rhythm with marked sinus arrhythmia Otherwise normal ECG Confirmed by OSCAR MOTT, JAMISON ([id number]), scientific editor JYOTI CEBALLOS ([id number]) on 06/25/2022 11:01:29 AM Referred By: SAMEERA Confirmed By:BJ RODRIGUEZ MD 06/25/22 1101 Date Chantal Rodriguez MD CC: Dr. Jn Cheung DO; Dr. Elsa Hines DO Signed Normal [facility] Absolute lymphocyte counton 06-21-2022 Lymphocytes Auto (Unsp spec) [#/Vol] 0.99 10*3/uL 0.83-4.51 [facility] Work Phone: Basic Metabolic Profile (BMP )on 12-09-2022 BUN/CRE 16.9 RATIO Normal 10-20 [facility] Comment on above: Order Comment: 'TROP ' Serial specimen #1, #2 or #3: 1 Performed By: #### L 501.4020, L300.8000, L100.0100, L500.2500 #### [facility] [address] [place], [address] CA,Total 9.4 mg/dL Normal 8.5-10.1 [facility] Comment on above: Order Comment: 'TROP ' Serial specimen #1, #2 or #3: 1 Performed By: #### L 501.4020, L300.8000, L100.0100, L500.2500 #### [facility] [address] [place], [address] Chloride [Moles/Vol] 108 mmol/L High 98-107 [facility] Comment on above: Order Comment: 'TROP ' Serial specimen #1, #2 or #3: 1 Performed By: #### L 501.4020, L300.8000, L100.0100, L500.2500 #### [facility] [address] [place], [address] CO2 [Moles/Vol] 25.0 mmol/L Normal 21.0-32.0 [facility] Comment on above: Order Comment: 'TROP ' Serial specimen #1, #2 or #3: 1 Performed By: #### L 501.4020, L300.8000, L100.0100, L500.2500 #### [facility] [address] [place], [address] Creatinine [Mass/Vol] 0.65 mg/dL Normal 0.55-1.02 [facility] Comment on above: Order Comment: 'TROP ' Serial specimen #1, #2 or #3: 1 Result Comment: The validity of the calculated GFR GFRAA in patients over 70 years has not been determined. Clinical correlation is essential. Performed By: #### L 501.4020, L300.8000, L100.0100, L500.2500 #### [facility] [address] [place], [address] ECRCL 88.55 ml/min Normal [facility] Comment on above: Order Comment: 'TROP ' Serial specimen #1, #2 or #3: 1 Performed By: #### L 501.4020, L300.8000, L100.0100, L500.2500 #### [facility] [address] [place], [address] EST GFR - AA 131 mL/min Normal >60 [facility] Comment on above: Order Comment: 'TROP ' Serial specimen #1, #2 or #3: 1 Result Comment: Afri can [place] GFR Calc Performed By: #### L 501.4020, L300.8000, L100.0100, L500.2500 #### [facility] [address] [place], [address] GAP 6 Normal 5-15 [facility] Comment on above: Order Comment: 'TROP ' Serial specimen #1, #2 or #3: 1 Performed By: #### L 501.4020, L300.8000, L100.0100, L500.2500 #### [facility] [address] [place], [address] GFR/1.73 sq M.predicted among non-blacks MDRD (S/P/Bld) [Vol rate/Area] 108 mL/min/{1.73_m2} Normal >60 [facility] Comment on above: Order Comment: 'TROP ' Serial specimen #1, #2 or #3: 1 Result Comment: Non- GFR Calc Performed By: #### L 501.4020, L300.8000, L100.0100, L500.2500 #### [facility] [address] [place], [address] Glucose [Mass/Vol] 110 mg/dL High 74-106 [facility] Comment on above: Order Comment: 'TROP ' Serial specimen #1, #2 or #3: 1 Result Comment: Fast ing Glucose result from 100 to 125 mg/dL suggests IMPAIRED HOMEOSTASIS per A.D.A. criteria. Performed By: #### L 501.4020, L300.8000, L100.0100, L500.2500 #### [facility] [address] [place], [address] Potassium [Moles/Vol] 3.9 mmol/L Normal 3.5-5.1 [facility] Comment on above: Order Comment: 'TROP ' Serial specimen #1, #2 or #3: 1 Performed By: #### L 501.4020, L300.8000, L100.0100, L500.2500 #### [facility] [address] [place], [address] Sodium [Moles/Vol] 139 mmol/L Normal 136-145 [facility] Comment on above: Order Comment: 'TROP ' Serial specimen #1, #2 or #3: 1 Performed By: #### L 501.4020, L300.8000, L100.0100, L500.2500 #### [facility] [address] [place], [address] Urea nitrogen [Mass/Vol] 11 mg/dL Normal 7-18 [facility] Comment on above: Order Comment: 'TROP ' Serial specimen #1, #2 or #3: 1 Performed By: #### L 501.4020, L300.8000, L100.0100, L500.2500 #### [facility] [address] [place], [address] Basophil percentageon 2021 Basophils/100 WBC (Bld) 0.3 % 0-1 [facility] Work Phone: Chloride [Moles/Vol] 108 mmol/L 98-107 [facility] Work Phone: Eosinophils/100 WBC (Bld) 1.6 % 0-5 [facility] Work Phone: Glucose [Mass/Vol] 110 mg/dL 74-106 [facility] Work Phone: Comment on above: Fasting Glucose resu lt from 100 to 125 mg/dL suggests IMPAIRED HOMEOSTASIS per A.D.A. criteria. Neutrophils (Bld) [#/Vol] 4.2 10*3/uL 2.0-7.7 [facility] Work Phone: Neutrophils/100 WBC (Bld) 73.2 % 47-70 [facility] Work Phone: Potassium [Moles/Vol] 3.9 mmol/L 3.5-5.1 [facility] Work Phone: Sodium [Moles/Vol] 139 mmol/L 136-145 [facility] Work Phone: WBC (Bld) [#/Vol] 5.8 10*3/uL 4.4-11.0 [facility] Work Phone: Blood erythrocytes count (nu mber/volume)on 06-21-2022 RBC (Bld) [#/Vol] 4.08 10*6/uL 4.2-5.4 [facility] Work Phone: Blood hemoglobin measurement (mass/volume)on 06-21-2022 Hemoglobin (Bld) [Mass/Vol] 11.2 g/dL 12.0-15.0 [facility] Work Phone: Blood lymphocytes/100 leukoc yteson 06-21-2022 Lymphocytes/100 WBC (Bld) 17.2 % 19-41 [facility] Work Phone: Blood monocytes/100 leukocyt eson 06-21-2022 Monocytes/100 WBC (Bld) 7.5 % 0-10 [facility] Work Phone: Blood platelet mean volumeon 06-21-2022 Platelet mean volume (Bld) [Entitic vol] 9.8 fL 6.2-12.0 [facility] Work Phone: CBC W/Diff, Automatedon 12-0 Absolute Lymph 0.99 X10 3/uL Normal 0.83-4.51 [facility] Comment on above: Performed By: #### L 501.4020, L300.8000, L100.0100, L500.2500 #### [facility] [address] [place], [address] Absolute Neut 4.2 X10 3/uL Normal 2.0-7.7 [facility] Comment on above: Performed By: #### L 501.4020, L300.8000, L100.0100, L500.2500 #### [facility] [address] [place], [address] Basophils/100 WBC (Bld) 0.3 % Normal 0-1 [facility] Comment on above: Performed By: #### L 501.4020, L300.8000, L100.0100, L500.2500 #### [facility] [address] [place], [address] Eosinophils/100 WBC (Bld) 1.6 % Normal 0-5 [facility] Comment on above: Performed By: #### L 501.4020, L300.8000, L100.0100, L500.2500 #### [facility] [address] [place], [address] Erythrocyte distribution width (RBC) [Ratio] 14.0 % Normal 11.6-14.6 [facility] Comment on above: Performed By: #### L 501.4020, L300.8000, L100.0100, L500.2500 #### [facility] [address] [place], [address] Hematocrit (Bld) [Volume fraction] 36.3 % Low 37-47 [facility] Comment on above: Performed By: #### L 501.4020, L300.8000, L100.0100, L500.2500 #### [facility] [address] [place], [address] Hemoglobin (Bld) [Mass/Vol] 11.2 g/dL Low 12.0-15.0 [facility] Comment on above: Performed By: #### L 501.4020, L300.8000, L100.0100, L500.2500 #### [facility] [address] [place], [address] IG% 0.200 Normal 0.0-0.9 [facility] Comment on above: Result Comment: IG% - Immature Granulocytes (promyelocytes, myelocytes and metamyelocytes) > 1% indicates that a LEFT SHIFT is Present. Performed By: #### L 501.4020, L300.8000, L100.0100, L500.2500 #### [facility] [address] [place], [address] Lymphocytes/100 WBC (Bld) 17.2 % Low 19-41 [facility] Comment on above: Performed By: #### L 501.4020, L300.8000, L100.0100, L500.2500 #### [facility] [address] [place], [address] MCH (RBC) [Entitic mass] 27.5 pg Normal 27.0-32.0 [facility] Comment on above: Performed By: #### L 501.4020, L300.8000, L100.0100, L500.2500 #### [facility] [address] [place], [address] MCHC (RBC) [Mass/Vol] 30.9 g/dL Low 32-36 [facility] Comment on above: Performed By: #### L 501.4020, L300.8000, L100.0100, L500.2500 #### [facility] [address] [place], [address] MCV (RBC) [Entitic vol] 89.0 fL Normal 81-99 [facility] Comment on above: Performed By: #### L 501.4020, L300.8000, L100.0100, L500.2500 #### [facility] [address] [place], [address] Monocytes/100 WBC (Bld) 7.5 % Normal 0-10 [facility] Comment on above: Performed By: #### L 501.4020, L300.8000, L100.0100, L500.2500 #### [facility] [address] [place], [address] Neutrophils/100 WBC (Bld) 73.2 % High 47-70 [facility] Comment on above: Performed By: #### L 501.4020, L300.8000, L100.0100, L500.2500 #### [facility] [address] [place], [address] Nucleated RBC (Bld) [#/Vol] 0 10*3/uL Normal 0-5 [facility] Comment on above: Performed By: #### L 501.4020, L300.8000, L100.0100, L500.2500 #### [facility] [address] [place], [address] Platelet mean volume (Bld) [Entitic vol] 9.8 fL Normal 6.2-12.0 [facility] Comment on above: Performed By: #### L 501.4020, L300.8000, L100.0100, L500.2500 #### [facility] [address] [place], [address] Platelets (Bld) [#/Vol] 314 10*3/uL Normal 150-450 [facility] Comment on above: Performed By: #### L 501.4020, L300.8000, L100.0100, L500.2500 #### [facility] [address] [place], [address] RBC (Bld) [#/Vol] 4.08 10*6/uL Low 4.2-5.4 [facility] Comment on above: Performed By: #### L 501.4020, L300.8000, L100.0100, L500.2500 #### [facility] [address] [place], [address] RDW SD 45.5 fl High 35.1-43.9 [facility] Comment on above: Performed By: #### L 501.4020, L300.8000, L100.0100, L500.2500 #### [facility] [address] [place], [address] WBC (Bld) [#/Vol] 5.8 10*3/uL Normal 4.4-11.0 [facility] Comment on above: Performed By: #### L 501.4020, L300.8000, L100.0100, L500.2500 #### [facility] [address] [place], [address] Chest 1 View (Portable)on Chest 1 View (Portable) [facility] Services [address] [place] [address] Chest 1 View (Portable) MR#: [id number] Acct: [id number] Name: HONORIO SUAREZ Rep #: [id number] : 1985 F 37 From: Jesus castanon MD PCP: Dr. Elsa Hines, Status: [facility] ER Study: Chest 1 View (Portable) Date of Exam: 06/21/22 Exam# [id number] Ordering Dr: Jn Cheung DO STUDY: X-RAY CHEST REASON FOR EXAM: Female, 37 years old. Chest pain TECHNIQUE: Single AP portable view of the chest. COMPARISON: None. FINDINGS: EKG electrodes are seen. The lungs are clear and expanded. There is no demonstrated pleural abnormality. Normal size heart. Normal mediastinum and eulogio. Normal visualized pulmonary arteries. Normal visualized aortic arch and descending thoracic aorta. Normal visualized thoracic spine. Normal visualized ribs, clavicles, and shoulders. There is no demonstrated abnormality of the visualized soft tissue structures of the upper abdomen. RAD/Chest 1 View (Portable) IMPRESSION: Normal x-ray examination of the chest. Electronically Signed: Jesus Rascon MD at 10:04 EST , CC: Dr. Jn Cheung DO; Dr. Elsa Hines DO Production Control Scheduler: Signed Normal [facility] D-Dimer Quantitative (DVT/PE )on 06-21-2022 D-DIMER QUANT 0.30 FEU/ug/m Normal 0.27-0.49 [facility] Comment on above: Result Comment: NORM AL D-Dimer level (<0.50) indicates no DVT or PE. Performed By: #### L 501.4020, L300.8000, L100.0100, L500.2500 #### [facility] [address] [place], [place], [address] Determination of erythrocyte mean corpuscular volume (MCV)on 06-21-2022 MCV (RBC) [Entitic vol] 89.0 fL 81-99 [facility] Work Phone: Emergency Department Summary on 06-21-2022 Emergency Department Summary [facility] Medical Records Department [address] [place] [address] Emergency Department Summary 06/21/22 MR#: [id number] Acct: [id number] Name: HONORIO SUAREZ Rep #: [id number] : 1985 37 From: Jn Cheung DO PCP: Dr. Elsa Hines DO Status:DEP ER Location: ED HPI History of Present Illness Chief Complaint: Chest Pain Informant: patient Narrative Narrative: 37-year-old female presents to the emergency room with left chest pain after being referred here by urgent care. Patient states for the past month she has had increased into dull digestion and belching seem to get better but now for the past 3 days she has had a pain in her left breast. 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 She states that today she went to see her primary care doctor because the pain is radiating around the breast and into the left shoulder. She notes some shortness of breath. She states that because she had not seen her primary care doctor for 2 years they sent her to the urgent care. At the urgent care the PA ordered an EKG and sent her here out of concern. EKG I reviewed was a normal sinus rhythm with no concerning features of ACS. Patient states that nothing seems to make this better or worse. Her mom had a heart attack. [facility] Medical History Back pain Chest pain Endometriosis Migraines Home Medications calcium carbonate 300 mg (750 mg) chewable tablet (Antacid Extra Strength (calcium carb)) 300 mg PO BID 09/12/19 [History Last Taken Unknown] ibuprofen 200 mg capsule 200 mg PO Q6H PRN 09/12/19 [History Last Taken Unknown] loratadine 10 mg capsule 10 mg PO DAILY 09/12/19 [History Last Taken Unknown] Allergy/AdvReac Type Severity Reaction Status Date / Time No Known Allergies Allergy Verified 06/21/22 09:42 Family History Other Diabetes Heart disease Surgical History H/O section History of dilation and curettage History of hysteroscopy Social History Smoking Status: Current every day smoker tobacco type: cigarettes alcohol intake: current alcohol intake frequency: a few times a week Alcohol type: hard liquor ROS ROS ED Constitutional Constitutional ED: Denies chills or weight loss Eyes Eyes: Denies change in vision or diplopia ENT ENT ED: Denies ear pain, rhinorrhea or sore throat Cardiovascular Cardiovascular: Reports chest pain; Denies orthopnea, palpitations or racing heartbeat Respiratory/Chest Respiratory/Chest: Reports dyspnea; Denies cough or orthopnea Gastrointestinal Gastrointestinal: Denies abdominal pain, diarrhea, nausea or vomiting Genitourinary Genitourinary ED: Denies dysuria, hematuria or urinary frequency Musculoskeletal Musculoskeletal: Denies arthralgias or myalgias Integumentary Denies abscess or rash Neurologic Neurologic: Denies headache(s) or weakness Psychiatric Psychiatric: Denies anxiety, depression, suicidal ideation or suicidal thoughts Endocrine Endocrinology: Denies polydipsia, polyphagia or polyuria Allergic/Immunologic Allergic/Immunologic ED: Denies mouth swelling, tongue swelling or urticaria EXAM Physical Exam Const Vital Signs: 06/21/22 09:02 06/21/22 09:40 Temperature 96.7 F L Temperature Source Temporal Pulse Rate 79 Respiratory Rate 14 Respiratory Effort Normal Non-Labored Blood Pressure 155/94 H Blood Pressure Mean 114 Pulse Ox 100 Oxygen Delivery Method Room Air Positive well nourished and well developed General Appearance ED: well developed HEENT Reports normocephalic, head/scalp atraumatic and moist mucous membranes Eyes PERRL and EOMs intact bilaterally Neck no lymphadenopathy, supple and no JVD Resp normal respiratory effort and clear to auscultation bilaterally Cardio regular rate, regular rhythm and no murmurs GI normal to inspection, nondistended, normoactive bowel sounds and non-tender Palpation: soft Back/Spine no CVA tenderness and normal ROM Extremity normal to inspection General Extremety ED: Negative for edema General Extremity: Negative for edema Neuro oriented x3 and CN's II-XII intact bilaterally Sensorium / Orientation: alert Motor Exam: strength 5/5 throughout Psych mental status grossly normal Mood Affect: Negative for depressed or tearful Skin no rashes or lesions noted and no wounds MDM MDM MDM Narrative Medical decision making narrative: D-dimer and troponin are within normal limits. CBC shows a hemoglobin 11.2. BMP is normal except for glucose of 110. My interpretation of the ch (more content not included)... Normal [facility] Hematocrit Auto (Bld) [Volum e fraction]on 06-21-2022 Hematocrit (Bld) [Volume fraction] 36.3 % 37-47 [facility] Work Phone: [phone] 06-21-2022 TROPONIN-I HS 4 pg/mL Normal 3.0-54.0 [facility] Comment on above: Order Comment: 'TROP ' Serial specimen #1, #2 or #3: 1 Result Comment: Stephen cornejo Note: New Test Units and Gender Specific Reference Ranges. For more information see Policy Stat Procedure [place] High Sensitivity Troponin (TNIH) and attachments. Performed By: #### L 501.4020, L300.8000, L100.0100, L500.2500 #### [facility] [address] [place], [address] Laboratory - Chemistry and C hemistry - challengeon 06-21-2022 CO2 [Moles/Vol] 25.0 mmol/L 21.0-32.0 [facility] Work Phone: Urea nitrogen/Creatinine [Mass ratio] 16.9 mg/mg 10-20 [facility] Work Phone: Laboratory - Hematology and Cell countson 06-21-2022 Erythrocyte distribution width (RBC) [Entitic vol] 45.5 fL 35.1-43.9 [facility] Work Phone: Erythrocyte distribution width (RBC) [Ratio] 14.0 % 11.6-14.6 [facility] Work Phone: Immature granulocytes/100 WBC (Bld) 0.200 % 0.0-0.9 [facility] Work Phone: Comment on above: IG% - Immature Granu locytes (promyelocytes, myelocytes and metamyelocytes) > 1% indicates that a LEFT SHIFT is Present. MCH (RBC) [Entitic mass] 27.5 pg 27.0-32.0 [facility] Work Phone: Nucleated RBC/100 WBC (Bld) [Ratio] 0 % 0-5 [facility] Work Phone: MCHC Auto (RBC) [Mass/Vol]on 06-21-2022 MCHC (RBC) [Mass/Vol] 30.9 g/dL 32-36 [facility] Work Phone: No Panel Informationon 06-21 D-Dimer Quantitative (PE/DVT) 0.30 FEU/ug/m 0.27-0.49 [facility] Work Phone: Comment on above: NORMAL D-Dimer level (<0.50) indicates no DVT or PE. Estimated Creatinine Clearance Calc 88.55 ml/min [facility] Work Phone: Estimated GFR (MDRD) Amer 131 mL/min >60 [facility] Work Phone: Comment on above: GFR Calc Estimated GFR (MDRD) Non-Af Amer 108 mL/min >60 [facility] Work Phone: Comment on above: Non- GFR Calc Troponin I High Sensitivity 4 pg/mL 3.0-54.0 [facility] Work Phone: Comment on above: Please Note: New Lesia t Units and Gender Specific Reference Ranges. For more information see Policy Stat Procedure [place] High Sensitivity Troponin (TNIH) and attachments. Platelets bldon 06-21-2022 Platelets (Bld) [#/Vol] 314 10*3/uL 150-450 [facility] Work Phone: Serum or plasma calcium chato urement (mass/volume)on 06-21-2022 Calcium [Mass/Vol] 9.4 mg/dL 8.5-10.1 [facility] Work Phone: Serum or plasma creatinine m easurement (mass/volume)on 06-21-2022 Creatinine [Mass/Vol] 0.65 mg/dL 0.55-1.02 [facility] Work Phone: Comment on above: The validity of the calculated GFR & GFRAA in patients over 70 years has not been determined. Clinical correlation is essential. Serum or plasma urea nitroge n measurement (mass/volume)on 06-21-2022 Urea nitrogen [Mass/Vol] 11 mg/dL 7-18 [facility] Work Phone: Thin prep Papanicolaou smear with manual screeningon 06-21-2022 Thin prep Papanicolaou smear with manual screening 6 5-15 [facility] Work Phone: Urgent Care Visit Reporton 1 08-22-2021 Urgent Care Visit Report [facility] [address] [place] [address] [address] [place] [address] OFFICE VISIT Date of Service: 06/21/22 MR#: [id number] Acct: [id number] Name: HONORIO SUAREZ Rep #: [id number] : 1985 Provider: TAMIKO Lorenzo Age/Sex: 37/F Location: [facility] Status: Signed Intake Vital Signs 06/21/22 07:45 BP 122/70 H Blood Pressure Location Lt brachial Position Sitting Respiration 20 H Pulse 92 Pulse Source Monitor Temp 98.6 F Temp Source Temporal Pulse Oximetry (%) 99 Oxygen Delivery Method room air Intake Visit Reasons: INDEGESTION Chief Complaint: Reflux Allergies No Known Allergies Allergy (Verified 06/21/22 09:02) Medications calcium carbonate 300 mg (750 mg) chewable tablet (Antacid Extra Strength (calcium carb)) 300 mg PO BID 09/12/19 [History Confirmed 06/21/22] ibuprofen 200 mg capsule 200 mg PO Q6H PRN 09/12/19 [History Confirmed 06/21/22] loratadine 10 mg capsule 10 mg PO DAILY 09/12/19 [History Confirmed 06/21/22] PFSH Medical History (Updated 06/21/22 @ 09:35 by Angelito MORRISON, PA) Back pain Chest pain Endometriosis Migraines Surgical History (Updated 09/12/19 @ 12:32 by Michelle Lam) H/O section History of dilation and curettage History of hysteroscopy Family History (Updated 09/12/19 @ 12:32 by Michelle Lam) Other Diabetes Heart disease Social History (Updated 09/12/19 @ 15:27 by Elba MORRISON, PA) Smoking Status: Current every day smoker alcohol intake: current alcohol intake frequency: a few times a week Alcohol type: hard liquor HPI HPI Chief Complaint: Reflux Details: HONORIO SUAREZ, is a 37 F who presents to the office today for complaint of indigestion and reflux for the past month. Patient states that this has been intermittent with it being worse 3 to 4 weeks ago and improvement in worse again in the past week or so. She states that she does have a burning type pain around her sternum however states this is somewhat constant. She reports having the indigestion mostly in the morning. She has no relief or worsening with eating. Patient does state that she also has left shoulder pain with this started yesterday however states that she has similar intermittent pain due to a horse riding accident years ago. No shortness of breath, difficulty breathing or hemoptysis. No nausea, vomiting, diarrhea. No hematochezia or hematemesis. No history of blood clots or personal cardiac history however patient does state that her mother had a heart attack in her early 60s. No other associated symptoms or alleviating/aggravatin g factors. ROS Const Constitutional: No other (6 system ROS completed with pertinent findings in the HPI otherwise normal.) Exam Const General: cooperative and healthy appearing HENMT Head: normocephalic and atraumatic Resp Effort Inspection: normal respiratory effort Auscultation: Bilateral: Clear to Auscultation Cardio Palpation: normal PMI Rate: regular rate Rhythm: regular rhythm Skin General: no rashes or lesions noted Neuro General: patient alert Psych Appearance: grossly normal Mental Status: mental status grossly normal Coding Level of Care Code Off vis,new,level 4 Diagnoses GERD (gastroesophageal reflux disease) K21.9 Abnormal resting ECG findings R94.31 Assessment and Plan Assessment and Plan (1) GERD (gastroesophageal reflux disease): Status: Acute (2) Abnormal resting ECG findings: Status: Acute Orders: Orders 12 Lead EKG performed by [facility] Today Z00.8 - Encounter for other general examination Plan Abnormal finding of left axis deviation on EKG in the office today and with recent onset of left- sided chest pain and shoulder pain patient has been advised to report to the ED for further evaluation and treatment. Patient verbalized understanding and agreement with all the above. 06/21/22 0936 Date Angelito Johnson Signature: Date (if applicable) CC: Normal [facility] LABORATORYOrdered By: Zena Harris on 06-20-2022 Free T3 [Mass/Vol] 3.57 pg/mL Invalid Interpretation Code 2.30 - 4.00 pg/mL AO ADM SS Free T4 [Mass/Vol] 1.23 ng/dL Invalid Interpretation Code 0.76 - 1.46 ng/dL AO ADM SS HbA1c (Bld) [Mass fraction] 5.4 % Invalid Interpretation Code 4.3 - 6.4 % AO ADM SS TSH Qn 2.32 m[IU]/L Invalid Interpretation Code 0.36 - 3.74 mcIU/mL AO ADM SS URINE JACIEL CULTURE-MARI COL C OUNT ([id number])Ordered By: Groutman on 01-26-2014 Bacteria identified Cx Nom (U) Final report Normal [facility] Work Phone: Comment on above: PATIENT NOT FASTINGP ERFORMED BY: [facility] [id number] Information: SRC:UR [id number] Bacteria identified Cx Nom (U) MUG Normal [facility]; [facility] Work Phone: Comment on above: Mixed urogenital елена ra10,000-25,000 colony forming units per mL PATIENT NOT FASTINGP ERFORMED BY: [facility] [id number] Information: SRC:UR [id number] Urinalysis, Office ([id number])Or dered By: Cookie Gonzalez on 01-25-2014 Bilirubin Ql (U) Negative Normal [facility]; [facility] Work Phone: Glucose Test strip (U) [Mass/Vol] Negative Normal [facility] Work Phone: Hemoglobin Ql (U) Negative Normal [facility]; [facility] Work Phone: Ketones Ql (U) Negative Normal [facility] Work Phone: Leukocyte esterase Test strip Ql (U) Small Normal [facility] Work Phone: Nitrite Ql (U) Negative Normal [facility] Work Phone: pH (U) 6.5 [pH] Normal [facility] Work Phone: Protein Ql (U) Negative Normal [facility] Work Phone: Specific gravity (U) [Rel density] 1.010 1 Normal [facility] Work Phone: Urobilinogen (24H U) [Mass/Time] 2 mg/dL Normal [facility] Work Phone: Thin prep Pap ([id number]) (no ST D testing)Ordered By: Groutman on 08-11-2009 Microscopic observation Other stain Nom (Unsp spec) . Normal [facility] Work Phone: Comment on above: Source.............C ervical;EndocervicalNo. of containers..01 CYTYC Thin Prep VialPATIENT NOT FASTINGPERFORMED BY: [employer] [place] L[employer] [id number] Information: [id number] Pathology report final diagnosis Narrative SPRCS Normal [facility] Work Phone: Comment on above: NEGATIVE FOR INTRAEP ITHELIAL LESION AND MALIGNANCY.THIS SPECIMEN WAS RESCREENED PART OF OUR SUPERVISOR BROAD[employer] PROGRAM.Satisfactory for evaluation. Endocervical and/or squamous metaplasticcells (endocervical component) are present.V70.0 ; Routine general medical examination at health care facilityCymonica Rodriguez, Tubular Splitting Machine Tender (ASCP)Ginna Wilkinson, Supervisory Tubular Splitting Machine Tender (ASCP) Source.............C ervical;EndocervicalNo. of containers..01 CYTYC Thin Prep VialPATIENT NOT FASTINGPERFORMED BY: [employer] [place] [address] [employer] [place] [id number] Information: [id number] Thin prep Pap ([id number]) (no STD testing) PAPSMR Normal [facility]; [facility] Work Phone: Comment on above: The Pap smear is a s creening test designed to aid in the detection ofpremalignant and malignant conditions of the uterine cervix. It is not adiagnostic procedure and should not be used as the sole means of detectingcervical cancer. Both false-positive and false-negative reports do occur..The HPV DNA reflex criteria were not met with this specimen resulttherefore, no HPV testing was performed.. Source.............C ervical;EndocervicalNo. of containers..01 CYTYC Thin Prep VialPATIENT NOT FASTINGPERFORMED BY: [facility] [address] [id number] Information: [id number] Vital Signs Date Time Vital Sign Value Performing Clinician Facility 06-07-2024 18:03-0500 Body temperature 98.91 [degF] Dhaval Athy PA-C Work Phone: [facility] 06-07-2024 18:03-0500 Body weight 86.5 kg Dhaval Athy PA-C Work Phone: [facility] 06-07-2024 18:03-0500 Diastolic blood pressure 72 mm[Hg] Dhaval Athy PA-C Work Phone: [facility] 06-07-2024 18:03-0500 Heart rate 78 /min Dhaval Athy PA-C Work Phone: [facility] 06-07-2024 18:03-0500 Respiratory rate 16 /min Dhaval Athy PA-C Work Phone: [facility] 06-07-2024 18:03-0500 SaO2% (BldA) [Mass fraction] 98 % Dhaval Athy PA-C Work Phone: [facility] 06-07-2024 18:03-0500 Systolic blood pressure 122 mm[Hg] Dhaval Athy PA-C Work Phone: [facility] 01-03-2023 07:59-0400 Body height 152.4 cm [facility] Work Phone: 01-03-2023 07:59-0400 Body mass index (BMI) [Ratio] 36.35 kg/m2 [facility]; [facility] Work Phone: 01-03-2023 07:59-0400 Body surface area Derived from formula 1.81 m2 [facility] Work Phone: 01-03-2023 07:59-0400 Body temperature 97.9 [degF] [facility] Work Phone: 01-03-2023 07:59-0400 Body weight 84.43 kg [facility]; [facility] Work Phone: 01-03-2023 07:59-0400 Diastolic blood pressure 70 mm[Hg] [facility] Work Phone: Comment on above: Patient Position: Sitting; Cuff Location : Left Arm; Cuff Size: Standard 01-03-2023 07:59-0400 Heart rate 62 /min [facility]; [facility] Work Phone: Comment on above: Pattern: Regular 01-03-2023 07:59-0400 SaO2% (BldA) [Mass fraction] 99 % [facility] Work Phone: Comment on above: Room air 01-03-2023 07:59-0400 Systolic blood pressure 108 mm[Hg] [facility] Work Phone: Comment on above: Patient Position: Sitting; Cuff Location : Left Arm; Cuff Size: Standard 11-01-2022 09:10-0400 Body height 152.4 cm Lata Mcmillan [employer]UE INVESTIGATOR [facility]; [facility] Work Phone: 11-01-2022 09:10-0400 Body mass index (BMI) [Ratio] 36.91 kg/m2 Lata Dowellrb REVENUE INVESTIGATOR [facility]; [facility] Work Phone: 11-01-2022 09:10-0400 Body surface area Derived from formula 1.82 m2 Lata Slarb REVENUE INVESTIGATOR [facility]; [facility] Work Phone: 11-01-2022 09:10-0400 Body temperature 97.8 [degF] Lata Slarb REVENUE INVESTIGATOR [facility]; [facility] Work Phone: Comment on above: Method: Temporal 11-01-2022 09:10-0400 Body weight 85.73 kg Lata Dowellrb REVENUE INVESTIGATOR [facility]; [facility] Work Phone: 11-01-2022 09:10-0400 Diastolic blood pressure 64 mm[Hg] Lata Slarb REVENUE INVESTIGATOR [facility]; [facility] Work Phone: Comment on above: Patient Position: Sitting; Cuff Location : Left Arm; Cuff Size: Standard 11-01-2022 09:10-0400 Heart rate 71 /min Lata Dowellrb REVENUE INVESTIGATOR [facility]; [facility] Work Phone: Comment on above: Pattern: Regular 11-01-2022 09:10-0400 Respiratory rate 16 /min Lata Slarb REVENUE INVESTIGATOR [facility]; [facility] Work Phone: Comment on above: Pattern: Unlabored 11-01-2022 09:10-0400 SaO2% (BldA) [Mass fraction] 99 % Lata Slarb REVENUE INVESTIGATOR [facility]; [facility] Work Phone: Comment on above: Room air 11-01-2022 09:10-0400 Systolic blood pressure 116 mm[Hg] Lata Slarb REVENUE INVESTIGATOR [facility]; [facility] Work Phone: Comment on above: Patient Position: Sitting; Cuff Location : Left Arm; Cuff Size: Standard 09-06-2022 08:11-0500 Body height 152.4 cm [facility]; [facility] Work Phone: 09-06-2022 08:11-0500 Body mass index (BMI) [Ratio] 36.37 kg/m2 [facility]; [facility] Work Phone: 09-06-2022 08:11-0500 Body surface area Derived from formula 1.81 m2 [facility]; [facility] Work Phone: 09-06-2022 08:11-0500 Body temperature 97.3 [degF] [facility]; [facility] Work Phone: 09-06-2022 08:11-0500 Body weight 84.48 kg [facility]; [facility] Work Phone: 09-06-2022 08:11-0500 Diastolic blood pressure 80 mm[Hg] [facility]; [facility] Work Phone: Comment on above: Patient Position: Sitting; Cuff Location : Left Arm; Cuff Size: Standard 09-06-2022 08:11-0500 Heart rate 61 /min [facility]; [facility] Work Phone: Comment on above: Pattern: Regular 09-06-2022 08:11-0500 Respiratory rate 16 /min [facility]; [facility] Work Phone: Comment on above: Pattern: Unlabored 09-06-2022 08:11-0500 SaO2% (BldA) [Mass fraction] 99 % [facility]; [facility] Work Phone: Comment on above: Room air 09-06-2022 08:11-0500 Systolic blood pressure 120 mm[Hg] [facility]; [facility] Work Phone: Comment on above: Patient Position: Sitting; Cuff Location : Left Arm; Cuff Size: Standard 08-02-2022 07:47-0500 Body height 152.4 cm [facility]; [facility] Work Phone: 08-02-2022 07:47-0500 Body mass index (BMI) [Ratio] 37.11 kg/m2 [facility]; [facility] Work Phone: 08-02-2022 07:47-0500 Body surface area Derived from formula 1.83 m2 [facility]; [facility] Work Phone: 08-02-2022 07:47-0500 Body temperature 96.9 [degF] [facility]; [facility] Work Phone: 08-02-2022 07:47-0500 Body weight 86.18 kg [facility]; [facility] Work Phone: 08-02-2022 07:47-0500 Diastolic blood pressure 70 mm[Hg] [facility]; [facility] Work Phone: Comment on above: Patient Position: Sitting; Cuff Location : Left Arm; Cuff Size: Standard 08-02-2022 07:47-0500 Heart rate 73 /min [facility]; [facility] Work Phone: Comment on above: Pattern: Regular 08-02-2022 07:47-0500 Respiratory rate 16 /min [facility]; [facility] Work Phone: Comment on above: Pattern: Unlabored 08-02-2022 07:47-0500 SaO2% (BldA) [Mass fraction] 98 % [facility]; [facility] Work Phone: Comment on above: Room air 08-02-2022 07:47-0500 Systolic blood pressure 122 mm[Hg] [facility]; [facility] Work Phone: Comment on above: Patient Position: Sitting; Cuff Location : Left Arm; Cuff Size: Standard 06-21-2022 10:53-0500 Diastolic blood pressure 81 mm[Hg] PA Angelito Lorenzo PA Work Phone: [facility] Work Phone: 06-21-2022 10:53-0500 Heart rate 62 /min PA Angelito Lorenzo PA Work Phone: [facility] Work Phone: 06-21-2022 10:53-0500 Respiratory rate 17 /min PA Angelito Lorenzo PA Work Phone: [facility] Work Phone: 06-21-2022 10:53-0500 SaO2% (BldA) [Mass fraction] 100 % PA Angelito Lorenzo PA Work Phone: [facility] Work Phone: 06-21-2022 10:53-0500 Systolic blood pressure 112 mm[Hg] PA Angelito Lorenzo PA Work Phone: [facility] Work Phone: 06-21-2022 09:02-0500 Body height 154.94 cm PA Angelito Lorenzo PA Work Phone: [facility] Work Phone: 06-21-2022 09:02-0500 Body mass index (BMI) [Ratio] 35.2 kg/m2 PA Angelito Lorenzo PA Work Phone: [facility] Work Phone: 06-21-2022 09:02-0500 Body temperature 96.7 [degF] PA Angelito Lorenzo PA Work Phone: [facility] Work Phone: 06-21-2022 09:02-0500 Body weight 84.6 kg PA Angelito Lorenzo PA Work Phone: [facility] Work Phone: 06-21-2022 07:45-0500 Body temperature 98.6 [degF] PA Angelito Lorenzo PA Work Phone: [facility] Work Phone: 06-21-2022 07:45-0500 Diastolic blood pressure 70 mm[Hg] PA Angelito Lorenzo PA Work Phone: [facility] Work Phone: 06-21-2022 07:45-0500 Heart rate 92 /min PA Angelito Lorenzo PA Work Phone: [facility] Work Phone: 06-21-2022 07:45-0500 Respiratory rate 20 /min PA Angelito Lorenzo PA Work Phone: [facility] Work Phone: 06-21-2022 07:45-0500 SaO2% (BldA) [Mass fraction] 99 % PA Angelito Lorenzo PA Work Phone: [facility] Work Phone: 06-21-2022 07:45-0500 Systolic blood pressure 122 mm[Hg] PA Angelito Lorenzo PA Work Phone: [facility] Work Phone: 09-24-2019 09:41-0400 Body height 152.4 cm Alisha Grant [facility]; [facility] Work Phone: 09-24-2019 09:41-0400 Body mass index (BMI) [Ratio] 32.22 kg/m2 Alisha Grant [facility]; [facility] Work Phone: 09-24-2019 09:41-0400 Body surface area Derived from formula 1.72 m2 Alisha Grant [facility]; [facility] Work Phone: 09-24-2019 09:41-0400 Body temperature 97.1 [degF] Alisah Grant [facility]; [facility] Work Phone: Comment on above: Method: Temporal 09-24-2019 09:41-0400 Body weight 74.84 kg Alisha Grant [facility]; [facility] Work Phone: 09-24-2019 09:41-0400 Diastolic blood pressure 58 mm[Hg] Alisha Grant [facility]; [facility] Work Phone: Comment on above: Patient Position: Sitting; Cuff Location : Left Arm; Cuff Size: Standard 09-24-2019 09:41-0400 Heart rate 79 /min Alisha Grant [facility]; [facility] Work Phone: Comment on above: Pattern: Regular 09-24-2019 09:41-0400 Respiratory rate 14 /min Alisha Grant [facility]; [facility] Work Phone: Comment on above: Pattern: Unlabored 09-24-2019 09:41-0400 SaO2% (BldA) [Mass fraction] 98 % Alisha Grant [facility]; [facility] Work Phone: Comment on above: Room air 09-24-2019 09:41-0400 Systolic blood pressure 98 mm[Hg] Alisha Grant [facility]; [facility] Work Phone: Comment on above: Patient Position: Sitting; Cuff Location : Left Arm; Cuff Size: Standard 11-04-2014 08:30-0400 Body height 152.4 cm Eunice Spence [facility]; [facility] Work Phone: 11-04-2014 08:30-0400 Body mass index (BMI) [Ratio] 30.86 kg/m2 Eunice Aragon [facility]; [facility] Work Phone: 11-04-2014 08:30-0400 Body surface area Derived from formula 1.69 m2 Eunice Aragon [facility]; [facility] Work Phone: 11-04-2014 08:30-0400 Body temperature 98 [degF] Eunice Aragon [facility]; [facility] Work Phone: Comment on above: Method: Oral 11-04-2014 08:30-0400 Body weight 71.67 kg Eunice Spence [facility]; [facility] Work Phone: 11-04-2014 08:30-0400 Diastolic blood pressure 56 mm[Hg] Eunice Aragon [facility]; [facility] Work Phone: Comment on above: Patient Position: Sitting; Cuff Location : Left Arm; Cuff Size: Large 11-04-2014 08:30-0400 Heart rate 68 /min Eunice Mahesh [facility]; [facility] Work Phone: Comment on above: Pattern: Regular 11-04-2014 08:30-0400 Respiratory rate 16 /min Eunice Mahesh [facility]; [facility] Work Phone: Comment on above: Pattern: Unlabored 11-04-2014 08:30-0400 Systolic blood pressure 100 mm[Hg] Eunice Mahesh [facility]; [facility] Work Phone: Comment on above: Patient Position: Sitting; Cuff Location : Left Arm; Cuff Size: Large 01-25-2014 11:57-0400 Body temperature 98 [degF] Cookie Gonzalez LPN [facility]; [facility] Work Phone: Comment on above: Method: Oral 01-25-2014 11:57-0400 Body weight 70.76 kg Cookie Gonzalez LPN [facility]; [facility] Work Phone: 01-25-2014 11:57-0400 Diastolic blood pressure 70 mm[Hg] Cookie Gonzalez LPN [facility]; [facility] Work Phone: Comment on above: Patient Position: Sitting; Cuff Location : Left Arm; Cuff Size: Standard 01-25-2014 11:57-0400 Heart rate 62 /min Cookie Gonzalez LPN [facility]; [facility] Work Phone: Comment on above: Pattern: Regular 01-25-2014 11:57-0400 Respiratory rate 16 /min Cookie Gonzalez LPN [facility]; [facility] Work Phone: 01-25-2014 11:57-0400 SaO2% (BldA) [Mass fraction] 98 % Cookie Gonazlez LPN [facility]; [facility] Work Phone: Comment on above: Room air 01-25-2014 11:57-0400 Systolic blood pressure 108 mm[Hg] Cookie Gonzalez LPN [facility]; [facility] Work Phone: Comment on above: Patient Position: Sitting; Cuff Location : Left Arm; Cuff Size: Standard 06-26-2010 15:40-0500 Body temperature 97.3 [degF] Cookie Gonzalez REVENUE INVESTIGATOR [facility]; [facility] Work Phone: Comment on above: Method: Oral 06-26-2010 15:40-0500 Body weight 70.76 kg Cookie Gonzalez REVENUE INVESTIGATOR [facility]; [facility] Work Phone: 06-26-2010 15:40-0500 Diastolic blood pressure 66 mm[Hg] Cookie Gonzalez REVENUE INVESTIGATOR [facility]; [facility] Work Phone: Comment on above: Patient Position: Sitting; Cuff Location : Left Arm; Cuff Size: Standard 06-26-2010 15:40-0500 Heart rate 72 /min Cookie Gonzalez LPN [facility]; [facility] Work Phone: Comment on above: Pattern: Regular 06-26-2010 15:40-0500 Respiratory rate 16 /min Cookie Gonzalez LPN [facility]; [facility] Work Phone: Comment on above: Pattern: Unlabored 06-26-2010 15:40-0500 Systolic blood pressure 102 mm[Hg] Cookie Gonzalez LPN [facility]; [facility] Work Phone: Comment on above: Patient Position: Sitting; Cuff Location : Left Arm; Cuff Size: Standard 03-16-2010 09:40-0400 Body temperature 98.4 [degF] Chel Roger RN [facility]; [facility] Work Phone: Comment on above: Method: Oral 03-16-2010 09:40-0400 Body weight 70.76 kg Chel Roger RN [facility]; [facility] Work Phone: 03-16-2010 09:40-0400 Diastolic blood pressure 54 mm[Hg] Chel Roger RN [facility]; [facility] Work Phone: Comment on above: Patient Position: Sitting; Cuff Location : Left Arm; Cuff Size: Standard 03-16-2010 09:40-0400 Heart rate 68 /min Chel Roger RN [facility]; [facility] Work Phone: Comment on above: Pattern: Regular 03-16-2010 09:40-0400 Respiratory rate 14 /min Chel Roger RN [facility]; [facility] Work Phone: Comment on above: Pattern: Unlabored 03-16-2010 09:40-0400 Systolic blood pressure 98 mm[Hg] Chel Roger RN [facility]; [facility] Work Phone: Comment on above: Patient Position: Sitting; Cuff Location : Left Arm; Cuff Size: Standard 02-09-2010 09:59-0400 Body temperature 98.2 [degF] Christellealfredo Youngerl [facility]; [facility] Work Phone: Comment on above: Method: Oral 02-09-2010 09:59-0400 Body weight 70.82 kg Christellealfredo Youngerl [facility]; [facility] Work Phone: 02-09-2010 09:59-0400 Diastolic blood pressure 58 mm[Hg] Christelle Sirl [facility]; [facility] Work Phone: Comment on above: Patient Position: Sitting; Cuff Location : Left Arm; Cuff Size: Standard 02-09-2010 09:59-0400 Heart rate 64 /min Christelle l [facility]; [facility] Work Phone: Comment on above: Pattern: Regular 02-09-2010 09:59-0400 Respiratory rate 18 /min Christelle Sirl [facility]; [facility] Work Phone: Comment on above: Pattern: Unlabored 02-09-2010 09:59-0400 Systolic blood pressure 92 mm[Hg] Christelle Sirl [facility]; [facility] Work Phone: Comment on above: Patient Position: Sitting; Cuff Location : Left Arm; Cuff Size: Standard 08-11-2009 10:40-0500 Body height 152.4 cm Chel Roger RN [facility]; [facility] Work Phone: 08-11-2009 10:40-0500 Body mass index (BMI) [Ratio] 29.89 kg/m2 Chel Roger RN [facility]; [facility] Work Phone: 08-11-2009 10:40-0500 Body surface area Derived from formula 1.67 m2 Chel Roger RN [facility]; [facility] Work Phone: 08-11-2009 10:40-0500 Body temperature 96.5 [degF] Chel Roger RN [facility]; [facility] Work Phone: Comment on above: Method: Oral 08-11-2009 10:40-0500 Body weight 69.43 kg Chel Roger RN [facility]; [facility] Work Phone: 08-11-2009 10:40-0500 Diastolic blood pressure 58 mm[Hg] Chel Roger RN [facility]; [facility] Work Phone: Comment on above: Patient Position: Sitting; Cuff Location : Left Arm; Cuff Size: Standard 08-11-2009 10:40-0500 Heart rate 48 /min Chel Roger RN [facility]; [facility] Work Phone: Comment on above: Pattern: Regular 08-11-2009 10:40-0500 Respiratory rate 14 /min Chel Roger RN [facility]; [facility] Work Phone: Comment on above: Pattern: Unlabored 08-11-2009 10:40-0500 Systolic blood pressure 98 mm[Hg] Chel Roger RN [facility]; [facility] Work Phone: Comment on above: Patient Position: Sitting; Cuff Location : Left Arm; Cuff Size: Standard 07-21-2009 10:38-0500 Body height 152.4 cm Elsa Steffany DO Work Phone: [facility]; [facility] Work Phone: 07-21-2009 10:38-0500 Body mass index (BMI) [Ratio] 29.89 kg/m2 Elsa Steffany DO Work Phone: [facility]; [facility] Work Phone: 07-21-2009 10:38-0500 Body surface area Derived from formula 1.67 m2 Elsa Steffany DO Work Phone: [facility]; [facility] Work Phone: 07-21-2009 10:38-0500 Body weight 69.43 kg Elsa Steffany DO Work Phone: [facility]; [facility] Work Phone: 07-21-2009 10:38-0500 Diastolic blood pressure 68 mm[Hg] Elsa Steffany DO Work Phone: [facility]; [facility] Work Phone: Comment on above: Patient Position: Sitting; Cuff Location : Left Arm; Cuff Size: Standard 07-21-2009 10:38-0500 Heart rate 68 /min Elsa Steffany DO Work Phone: [facility]; [facility] Work Phone: Comment on above: Pattern: Regular 07-21-2009 10:38-0500 Respiratory rate 18 /min Elsa Hartleyon DO Work Phone: [facility]; [facility] Work Phone: Comment on above: Pattern: Unlabored 07-21-2009 10:38-0500 Systolic blood pressure 108 mm[Hg] Elsa Steffany DO Work Phone: [facility]; [facility] Work Phone: Comment on above: Patient Position: Sitting; Cuff Location : Left Arm; Cuff Size: Standard 06-14-2009 13:35-0500 Body height 153.67 cm Nathaly Corona RN [facility]; [facility] Work Phone: 06-14-2009 13:35-0500 Body mass index (BMI) [Ratio] 28.84 kg/m2 Nathaly Corona RN [facility]; [facility] Work Phone: 06-14-2009 13:35-0500 Body surface area Derived from formula 1.66 m2 Nathaly Corona RN [facility]; [facility] Work Phone: 06-14-2009 13:35-0500 Body weight 68.1 kg Nathaly Corona RN [facility]; [facility] Work Phone: 06-14-2009 13:35-0500 Diastolic blood pressure 60 mm[Hg] Nathaly Corona RN [facility]; [facility] Work Phone: Comment on above: Patient Position: Sitting; Cuff Location : Left Arm; Cuff Size: Large 06-14-2009 13:35-0500 Head Occipital-frontal circumference 0 cm Nathaly Corona RN [facility]; [facility] Work Phone: 06-14-2009 13:35-0500 Heart rate 60 /min Nathaly Corona RN [facility]; [facility] Work Phone: Comment on above: Pattern: Regular 06-14-2009 13:35-0500 Respiratory rate 18 /min Nathaly Corona RN [facility]; [facility] Work Phone: Comment on above: Pattern: Unlabored 06-14-2009 13:35-0500 Systolic blood pressure 110 mm[Hg] Nathaly Corona RN [facility]; [facility] Work Phone: Comment on above: Patient Position: Sitting; Cuff Location : Left Arm; Cuff Size: Large Encounters Encounter Date Encounter Type Care Provider Facility Start: 06-07-2024 End: 06-07-2024 ambulatory ELSA HINES Facility:[facility] Start: 06-07-2024 End: 06-07-2024 Patient encounter procedure Dhaval Gonzalez PA-C Work Phone: [facility] Comment on above: Urinary frequency (P rimary Dx) Start: 01-01-2024 End: 01-01-2024 ambulatory NONE PHYSICIAN Facility:A Start: 01-01-2024 End: 01-01-2024 Patient encounter procedure FREEMAN MARTINEZ [facility] Start: 11-20-2023 End: 11-20-2023 ambulatory NONE PHYSICIAN Facility:A Start: 11-20-2023 End: 11-20-2023 Patient encounter procedure FREEMANLUCINA MARTINEZ [facility] Start: 10-10-2023 End: 10-14-2023 ambulatory NONE PHYSICIAN Facility:B Start: 10-10-2023 End: 10-14-2023 Encounter for gynecological examination (general) (routine) without abnormal findings RANDEE BENZ MD Facility:B Start: 10-10-2023 End: 10-14-2023 Outreach Lab RANDEE BENZ MD [facility] [facility] Start: 09-05-2023 End: 09-05-2023 ambulatory DARIUS DRIVER MD Facility:[facility] Start: 09-05-2023 End: 09-05-2023 Patient encounter procedure DARIUS DRIVER MD [facility] Start: 06-25-2023 End: 06-25-2023 ambulatory DARIUS DRIVER MD Facility:[facility] Start: 06-25-2023 End: 06-25-2023 Patient encounter procedure DARIUS DRIVER MD [facility] Start: 01-03-2023 End: 01-03-2023 Office outpatient visit 10 minutes Elsa Steffany DO Work Phone: [facility] Start: 11-07-2022 End: 11-07-2022 Annotation/Addendum Elsa Steffany DO Work Phone: [facility] Start: 11-01-2022 ambulatory Elsa Steffany DO [facility] Start: 11-01-2022 End: 11-01-2022 Office outpatient visit 10 minutes Elsa Steffany DO Work Phone: [facility] Start: 10-02-2022 End: 10-02-2022 Prescription Refill Elsa Steffany DO Work Phone: [facility] Start: 09-06-2022 End: 09-06-2022 Office outpatient visit 15 minutes Elsa Steffany DO Work Phone: [facility] Start: 09-06-2022 Review Elsa Fearo n DO Work Phone: [facility] Start: 08-02-2022 End: 08-02-2022 Office outpatient visit 25 minutes Elsa Steffany DO Work Phone: [facility] Start: 08-02-2022 Review Elsa Fearo n DO Work Phone: [facility] Start: 07-19-2022 End: 07-19-2022 Patient encounter procedure DARIUS DRIVER MD [facility] Start: 06-21-2022 Encounter for other general examination [facility] Start: 06-21-2022 End: 06-21-2022 ambulatory [facility] Start: 06-21-2022 End: 06-21-2022 Emergency department patient visit TAMIKO MORRISON Work Phone: [facility] Start: 06-21-2022 End: 06-21-2022 Patient encounter procedure TAMIKO MORRISON Work Phone: [facility] Start: 06-20-2022 End: 06-20-2022 Patient encounter procedure DARIUS DRIVER MD [facility] Start: 09-24-2019 End: 09-24-2019 Office outpatient visit 10 minutes Elsa Steffany DO Work Phone: [facility] Start: 04-27-2018 End: 04-28-2018 Patient encounter Gilberto Cardozo Facility[facility] Start: 11-20-2017 End: 11-21-2017 Patient encounter Gilberto Cardozo [facility] Start: 11-29-2016 End: 11-29-2016 Telephone encounter Noreen Chen APRN.CNP Work Phone: [facility] Comment on above: Results Start: 11-04-2014 End: 11-06-2014 Office outpatient visit 25 minutes Elsa Steffany DO Work Phone: [facility] Start: 01-25-2014 End: 01-25-2014 Patient encounter procedure Elsa Steffany DO Work Phone: [facility] Start: 06-26-2010 End: 06-26-2010 Office outpatient visit 25 minutes Elsa Steffany DO Work Phone: [facility] Start: 03-16-2010 End: 03-16-2010 Patient encounter procedure Elsa Steffany DO Work Phone: [facility] Start: 02-09-2010 End: 02-09-2010 Patient encounter procedure Elsa Steffany DO Work Phone: [facility] Start: 08-11-2009 End: 08-11-2009 Medical examinations/reports status Elsa Steffany DO Work Phone: [facility] Start: 08-11-2009 End: 08-11-2009 Patient encounter procedure Elsa Steffany DO Work Phone: [facility] Start: 07-21-2009 End: 07-21-2009 Patient encounter procedure Elsa Steffany DO Work Phone: [facility] Start: 06-14-2009 End: 06-14-2009 Office outpatient new 30 minutes Elsa Steffany DO Work Phone: [facility] Start: 06-14-2009 End: 06-14-2009 Historical Summary Elsa Steffany DO Work Phone: [facility] Medical examinations/reports status Alisha Grant [facility] Work Phone: Medical examinations/reports status Jennifer Reece [facility]; [facility] Work Phone: [facility] examinations[facility] Work Phone: [facility] examinations/reports [facility] Work Phone: Medical examinations/reports [facility] Work Phone: Procedures Date Procedure Procedure Detail Performing Clinician Start: 06-07-2024 Urnls dip stick/tabl et rgnt auto w/o microscopy Dhaval Gonzalez PA-C Work Phone: Start: 06-21-2022 End: 06-21-2022 Emergency Department Summary Procedure Note: See Note; NOTES: [facility] Medical Records Department [address] [place] [address] Emergency Department Summary 06/21/22 MR#: [id number] Acct: [id number] Name: HONORIO SUAREZ Rep #: [id number] : 1985 37 From: Jn Cheung DO PCP: Dr. Elsa Hines DO Status:DEP ER Location: ED HPI History of Present Illness Chief Complaint: Chest Pain Informant: patient Narrative Narrative: 37-year-old female presents to the emergency room with left chest pain after being referred here by urgent care. Patient states for the past month she has had increased into dull digestion and belching seem to get better but now for the past 3 days she has had a pain in her left breast. 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 She states that today she went to see her primary care doctor because the pain is radiating around the breast and into the left shoulder. She notes some shortness of breath. She states that because she had not seen her primary care doctor for 2 years they sent her to the urgent care. At the urgent care the TAMIKO ordered an EKG and sent her here out of concern. EKG I reviewed was a normal sinus rhythm with no concerning features of ACS. Patient states that nothing seems to make this better or worse. Her mom had a heart attack. [facility] Medical History Back pain Chest pain Endometriosis Migraines Home Medications calcium carbonate 300 mg (750 mg) chewable tablet (Antacid Extra Strength (calcium carb)) 300 mg PO BID 09/12/19 [History Last Taken Unknown] ibuprofen 200 mg capsule 200 mg PO Q6H PRN 09/12/19 [History Last Taken Unknown] loratadine 10 mg capsule 10 mg PO DAILY 09/12/19 [History Last Taken Unknown] Allergy/AdvReac Type Severity Reaction Status Date / Time No Known Allergies Allergy Verified 06/21/22 09:42 Family History Other Diabetes Heart disease Surgical History H/O section History of dilation and curettage History of hysteroscopy Social History Smoking Status: Current every day smoker tobacco type: cigarettes alcohol intake: current alcohol intake frequency: a few times a week Alcohol type: hard liquor ROS ROS ED Constitutional Constitutional ED: Denies chills or weight loss Eyes Eyes: Denies change in vision or diplopia ENT ENT ED: Denies ear pain, rhinorrhea or sore throat Cardiovascular Cardiovascular: Reports chest pain; Denies orthopnea, palpitations or racing heartbeat Respiratory/Chest Respiratory/Chest: Reports dyspnea; Denies cough or orthopnea Gastrointestinal Gastrointestinal: Denies abdominal pain, diarrhea, nausea or vomiting Genitourinary Genitourinary ED: Denies dysuria, hematuria or urinary frequency Musculoskeletal Musculoskeletal: Denies arthralgias or myalgias Integumentary Denies abscess or rash Neurologic Neurologic: Denies headache(s) or weakness Psychiatric Psychiatric: Denies anxiety, depression, suicidal ideation or suicidal thoughts Endocrine Endocrinology: Denies polydipsia, polyphagia or polyuria Allergic/Immunologic Allergic/Immunologic ED: Denies mouth swelling, tongue swelling or urticaria EXAM Physical Exam Const Vital Signs: 06/21/22 09:02 06/21/22 09:40 Temperature 96.7 F L Temperature Source Temporal Pulse Rate 79 Respiratory Rate 14 Respiratory Effort Normal Non-Labored Blood Pressure 155/94 H Blood Pressure Mean 114 Pulse Ox 100 Oxygen Delivery Method Room Air Positive well nourished and well developed General Appearance ED: well developed HEENT Reports normocephalic, head/scalp atraumatic and moist mucous membranes Eyes PERRL and EOMs intact bilaterally Neck no lymphadenopathy, supple and no JVD Resp normal respiratory effort and clear to auscultation bilaterally Cardio regular rate, regular rhythm and no murmurs GI normal to inspection, nondistended, normoactive bowel sounds and non-tender Palpation: soft Back/Spine no CVA tenderness and normal ROM Extremity normal to inspection General Extremety ED: Negative for edema General Extremity: Negative for edema Neuro oriented x3 and CN's II-XII intact bilaterally Sensorium / Orientation: alert Motor Exam: strength 5/5 throughout Psych mental status grossly normal Mood Affect: Negative for depressed or tearful Skin no rashes or lesions noted and no wounds MDM MDM MDM Narrative Medical decision making narrative: D-dimer and troponin are within normal limits. CBC shows a hemoglobin 11.2. BMP is normal except for glucose of 110. My interpretation of the chest x-ray is no acute process. Her EKG is a sinus rhythm with sinus arrhythmia but there is no concerning features of ACS and she has not had any dysrhythmias on the monitor. From a cardiac standpoint I think she is fine. We will start her on some Protonix for her indigestion/belching. She has an appointment with primary care next Friday Lab Data Attestation: I reviewed the patient's lab results. Labs: Laboratory Results - last 24 hr 06/21/22 06/21/22 06/21/22 09:35 09:35 09:35 WBC 5.8 RBC 4.08 L Hgb 11.2 L Hct 36.3 L MCV 89.0 MCH 27.5 MCHC 30.9 L RDW Std Deviation 45.5 H RDW Coeff of Nadege 14.0 Plt Count 314 MPV 9.8 Immature Gran % (Auto) 0.200 Neut % (Auto) 73.2 H Lymph % (Auto) 17.2 L Schleicher % (Auto) 7.5 Eos % (Auto) 1.6 Baso % (Auto) 0.3 Absolute Neuts (auto) 4.2 Absolute Lymphs (auto) 0.99 Nucleated RBC % 0 D-Dimer Quant (PE/DVT) 0.30 Sodium 139 Potassium 3.9 Chloride 108 H Carbon Dioxide 25.0 Anion Gap 6 BUN 11 Creatinine 0.65 Estim Creat Clear Calc 88.55 Est GFR (MDRD) Af Amer 131 Est GFR (MDRD) Non-Af 108 BUN/Creatinine Ratio 16.9 Glucose 110 H Calcium 9.4 Troponin I High Sens 4 Radiography Diagnostic Testing: Clinical Impression(s) from Imaging Studies Chest X-Ray 06/21/22 09:21 IMPRESSION: Normal x-ray examination of the chest. Electronically Signed: Jesus Rascon MD at 10:04 EST , EKG Initial EKG: Attestation: I personally reviewed and interpreted this EKG as follows: Comments: Sinus rhythm with a sinus arrhythmia and a ventricular rate of 71 bpm Discharge Plan Triage Chief Complaint: Chest Pain ED Provider: Jn Cheung Dx/Rx/DC Orders Prescriptions: No Action loratadine 10 mg capsule 10 mg PO DAILY ibuprofen 200 mg capsule 200 mg PO Q6H PRN calcium carbonate [Antacid Ext Str (calcium carb)] 300 mg (750 mg) tablet,chewable 300 mg PO BID Primary Care Provider: Elsa Hines Referrals: Elsa Hines DO [Primary Care Provider] - What to do if you have Problems For any increased pain, shortness of breath, bleeding, nausea or vomiting, chest pain, or any unexpected problems, contact your Primary Care Provider. Call [facility] ([phone]) or report to the closest Emergency Room. Call 911 if necessary. 06/21/22 1616 <Electronically signed by Jn Cheung DO> Cosigner Signature (if applicable): CC: Dr. Elsa Hines DO Signed Elsa Hines DO Work Phone: Start: 06-21-2022 End: 06-25-2022 12 Lead EKG Procedure Note: See Note; NOTES: [facility] Cardi[facility] Services [address] [place] [address] 12 Lead EKG 06/21/22914 MR#: [id number] Acct: [id number] Name: HONORIO SUAREZ Rep #: [id number] : 1985 37 From: Chantal Rodriguez MD Attending Dr: Status: DEP ER Ordering Dr: Jn Cheung DO Date: 06/21/22 Location: ED Sex: F C Admitted: Test Reason : Blood Pressure : / mmHG Vent. Rate : 071 BPM Atrial Rate : 071 BPM P-R Int : 194 ms QRS Dur : 084 ms QT Int : 382 ms P-R-T Axes : 013 -28 047 degrees QTc Int : 415 ms Sinus rhythm with marked sinus arrhythmia Otherwise normal ECG Confirmed by OSCAR MOTT, JAMISON ([id number]), scientific editor JYOTI CEBALLOS ([id number]) on 06/25/2022 11:01:29 AM Referred By: SAMEERA Confirmed By:BJ RODRIGUEZ MD 06/25/22 1101 Date Chantal Rodriguez MD CC: Dr. Jn Cheung DO; Dr. Elsa Hines DO Signed Elsa Hines DO Work Phone: Start: 06-21-2022 End: 06-21-2022 Chest 1 View (Portable) Procedure Note: See Note; NOTES: [facility] Imaging Services [address] [place] [id number] Chest 1 View (Portable) MR#: [id number] Acct: [id number] Name: HONORIO SUAREZ Rep #: [id number] : 1985 F 37 From: Jesus castanon MD PCP: Dr. Elsa Hines DO Status: REG ER Study: Chest 1 View (Portable) Date of Exam: 06/21/22 Exam# [id number] Ordering Dr: Jn Cheung DO STUDY: X-RAY CHEST REASON FOR EXAM: Female, 37 years old. Chest pain TECHNIQUE: Single AP portable view of the chest. COMPARISON: None. FINDINGS: EKG electrodes are seen. The lungs are clear and expanded. There is no demonstrated pleural abnormality. Normal size heart. Normal mediastinum and eulogio. Normal visualized pulmonary arteries. Normal visualized aortic arch and descending thoracic aorta. Normal visualized thoracic spine. Normal visualized ribs, clavicles, and shoulders. There is no demonstrated abnormality of the visualized soft tissue structures of the upper abdomen. RAD/Chest 1 View (Portable) IMPRESSION: Normal x-ray examination of the chest. Electronically Signed: Jesus Rascon MD at 10:04 EST , CC: Dr. Jn Cheung DO; Dr. Elsa Hines DO Production Control Scheduler: Signed Elsa Hines DO Work Phone: Start: 06-21-2022 Plain chest X-ray PA [place] MORRISON Work Phone: Start: 07-14-2010 Laparoscopy DARIUS Tapia MD Comment on above: endometriosis with a dhesions Start: 07-14-2007 section DARIUS DRIVER MD H/O: section Section Nilo Grant [facility] Comment on above: 2007 H/O: section Section Harjeet Reece CMA Comment on above: 2007 H/O: section Section Harjeet Reece CMA Comment on above: 2007 H/O: section Section Harjeet Reece [employer]DER Comment on above: 2007 H/O: section Section Endy Kaye LPN Comment on above: 2007 Plan of Treatment Date Care Activity Detail Author Start: 03-14-2024 Covid-19 Vaccine ( season) Covid-19 Vaccine ( season) [facility] Start: 03-14-2024 Influenza vaccination Influenza Vacc ine (#1) [facility] Start: 2024 Screening for malign ant neoplasm of breast Mammogram Screening [facility] Start: 01-03-2023 Procedure Education Eprescribe d prescriptions (G8553) [facility]; [facility] Work Phone: Start: 01-03-2023 Provider Instruction s for Treatment Follow up in 2 months [facility]; [facility] Work Phone: Start: 11-01-2022 Procedure Education Eprescribe d prescriptions (G8553) [facility]; [facility] Work Phone: Start: 11-01-2022 Provider Instruction s for Treatment [facility]; [facility] Work Phone: Start: 09-06-2022 Procedure Education Eprescribe d prescriptions (G8553) [facility]; [facility] Work Phone: Start: 09-06-2022 Provider Instruction s for Treatment Follow up in 2 months [facility]; [facility] Work Phone: Start: 08-02-2022 Procedure Education Eprescribe d prescriptions (G8553) [facility]; [facility] Work Phone: Start: 08-02-2022 Provider Instruction s for Treatment [facility]; [facility] Work Phone: Start: 08-02-2022 Lipid panel LIPID PANEL (26715) [facility]; [facility] Work Phone: Start: 08-02-2022 Lactate dehydrogenas e ldh LDH (LD) (LACTATE DEHYDROGENASE) (24673) [facility]; [facility] Work Phone: Start: 08-02-2022 Cyanocobalamin vitam in b-12 VITAMIN B-12 (CYANOCOBALAMIN) (77972) [facility]; [facility] Work Phone: Start: 08-02-2022 Blood count reticulocyte automated RETICULOCYTE COUNT MANU (46334) [facility]; [facility] Work Phone: Start: 08-02-2022 Iron binding capacity IRON BIN DING CAPACITY (TIBC) (55904) [facility]; [facility] Work Phone: Start: 08-02-2022 Assay of iron IRON (92650) [facility]; [facility] Work Phone: Start: 08-02-2022 Assay of ferritin FERRITIN (65433) [facility]; [facility] Work Phone: Start: 08-02-2022 Blood count complete auto&auto difrntl wbc CBC, PLATELETS & AUT DIFF (07609) [facility]; [facility] Work Phone: Start: 06-21-2022 Evaluation of diagnostic study results [facility] Work Phone: Start: 03-14-2021 Influenza vaccination INFLUENZ A (Season Ended) [facility] Start: 09-24-2019 Procedure Education Eprescribe d prescriptions (G8553) [facility]; [facility] Work Phone: Start: 11-04-2014 Patient Education Dizziness *: dizzi ness [facility]; [facility] Work Phone: Start: 11-04-2014 Procedure Education Eprescribe d prescriptions (G8553) [facility]; [facility] Work Phone: Start: 02-09-2014 HPV TESTING HPV TESTING [facility] Start: 01-25-2014 Patient Education Water in t, brief version [facility]; [facility] Work Phone: Start: 01-25-2014 Provider Instruction s for Treatment [facility]; [facility] Work Phone: Start: 01-25-2014 Urine test visual color cmprsn meths Urine Test, Office (54958) [facility]; [facility] Work Phone: Start: 06-26-2010 Provider Instruction s for Treatment FOLLOW UP IN 2 WEEKS with [facility]; [facility] Work Phone: Start: 02-09-2010 Provider Instruction s for Treatment *Antidepressant Usage [facility]; [facility] Work Phone: Start: 02-09-2010 Gonadotropin chorion ic qualitative TEST - SERUM QUANTITATIVE (HCG) (22472) [facility]; [facility] Work Phone: Start: 02-09-2010 Thromboplastin time partial plasma/whole blood PTT (Activated Partial Thromboplastin Time) (38239) [facility]; [facility] Work Phone: Start: 02-09-2010 Prothrombin time PT (Prothrobi m Time) (52126) [facility]; [facility] Work Phone: Start: 02-09-2010 Blood count manual c ell count each CBC WITH MANUAL DIFF (27680) [facility]; [facility] Work Phone: Start: 02-09-2010 Comprehensive metabo lic panel METABOLIC PANEL, COMPREHENSIVE (78164) [facility]; [facility] Work Phone: Start: 02-09-2010 Assay of thyroid stimulating hormone tsh TSH (13943) [facility]; [facility] Work Phone: Start: 08-11-2009 Provider Instruction s for Treatment [facility]; [facility] Work Phone: Start: 07-21-2009 Glucose quantitative blood xcpt reagent strip Glucose, PP/2 Hour (94734) [facility]; [facility] Work Phone: Start: 07-21-2009 Lipid panel LIPID PANEL (69576) [facility]; [facility] Work Phone: Start: 02-09-2005 PAP TESTING PAP TESTING [facility] Start: 02-09-2005 Screening for malign ant neoplasm of cervix Cervical Cancer Screening [facility] Start: 02-09-2003 Hepatitis B Vaccine (1 of 3 - 19+ 3-dose series) Hepatitis B Vaccine (1 of 3 - 19+ 3-dose series) [facility] Start: 02-09-2003 Urine microalbumin profile [facility] Start: 02-09-2002 Anxiety Screening Anxiety Screening [facility] Start: 02-09-2002 Depression Screening Depression Scre ening [facility] Start: 02-09-2002 HEPATITIS C SCREENING HEPATITIS C [facility] Start: 02-09-2002 Hepatitis C screening Hepatitis C [facility] Start: 02-09-2002 HIV SCREENING HIV SCREENING [facility] Start: 02-09-2002 HIV screening HIV Screening [facility] Start: 1996 Adult depression screening assessment DEPRESSION SCREENING [facility] Start: 02-09-1990 Pneumococcal vaccination Pneumococcal Vaccine (1 of 2 - PCV) [facility] Bacteria identified in Urine by Culture URINE CULTURE Microbiology Routine Urinary frequency Ordered: 06/07/2024 [facility] Work Phone: Comment on above: Ordered: 06/07/2024 Evaluation of diagnostic study results [facility] Work Phone: Patient Education ED Chest Pain, Noncardiac ED GERD (Adult) [facility] Work Phone: Patient referral [facility] Work Phone: [facility] Work Phone: [facility] Work Phone: [facility] Work Phone: Immunizations Immunization Date Immunization Notes Care Provider Fa [facility] 02-28-2003 hepatitis B pediatri c vaccine FREEMAN MARTINEZ 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 MAK[employer] 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 [facility] 09-22-2002 hepatitis B pediatri c vaccine FREEMAN MARTINEZ INSECTICIDE MAKER-JET SKI MECHANIC [facility] 08-20-2002 hepatitis B pediatri c vaccine FREEMAN MARTINEZ INSECTICIDE MAKER-JET SKI MECHANIC [facility] 02-22-1997 measles/mumps/rubell a virus vaccine FREEMAN MARTINEZ INSECTICIDE MAKER-JET SKI MECHANIC [facility] 04-10-1987 haemophilus influenz ae type b vaccine, PRP-OMP conjugate FREEMAN MARTINEZ INSECTICIDE MAKER-JET SKI MECHANIC [facility] 06-03-1985 measles/mumps/rubell a virus vaccine FREEMAN MARTINEZ INSECTICIDE MAKER-JET SKI MECHANIC [facility] Payers Date Payer Category Payer Unknown [id number] 1 2022 Self-pay [id number] 2021 Unknown [id number] 2017 Unknown 2016 Unknown [employer] PPO [id number] 2016-Present PPO [id number] 2014 Unknown [id number] 01 2009 Unknown [id number] 2009 Unknown [id number] 1984 Unknown [id number] 1984 Unknown [id number] 1984 Unknown [id number] 1984 Unknown [id number] 1984 Unknown [id number] 1984 Unknown [id number] 1984 Unknown [id number] 1984 Unknown [id number] Unknown [id number] Unknown [id number] Social History Date Type Detail Facility Start: 11-28-2016 End: 06-07-2024 Tobacco smoking status INIS Current some day smoker [facility] Start: 1985 Sex Assigned At Not on file C [facility] Start: 09-21-2020 Tobacco smoking status Never s moked tobacco (finding) [facility] Start: 1985 Sex Assigned At Female A [facility] Start: 06-21-2022 Tobacco smoking stat us INIS Unknown if ever smoked [facility] Work Phone: Start: 06-07-2024 Alcohol Use Alcohol Use Comprehens [facility]; [facility] Work Phone: Comment on above: Occasional alcohol u se 6 coffee QD , 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 [facility] Tobacco smoking status No Smokin g Status Entered [facility] Start: 06-07-2024 Tobacco use panel [facility] Mental Status Date Assessment Result Facility 06-21-2022 Cognitive function Awake;Alert;A ppropriate;Fol lows Commands [facility] Work Phone: Clinical Notes 11-29-2016 to 06-07-2024 Dhaval Gonzalez PA-C - 06/07/2024 6:06 PM ESTRadiologyRadiologyRadiologyTelephone Encounter - Valentina Franklin Ma - 11/29/2016 7:00 PM EDTTelephone Encounter - Noreen Chen CNP - 11/29/2016 3:45 PM EDT Note Date & Type Note Facility 06-07-2024 Note HNO ID: [id number] Author: DHAVAL GONZALEZ PA-C Service: ? Author Type: Physician [employer] Judge Type: Progress Notes Filed: 06/07/2024 18:44 Note Text: This note was created using GeoVar[employer]iter. Subjective Honorio Suarez is a 39 year old female. HPI Patient presents with urinary frequency and blood in urine over the past 3 days. Denies abdominal pain. No history of kidney stones. No flank pain or back pain. Denies dysuria. She states she also has endometriosis and sometimes will spot from that. She denies chance of . No fever. No vaginal itching or discharge. Review of Systems Genitourinary: Positive for frequency and hematuria. Negative for dysuria, flank pain, pelvic pain, urgency, vaginal bleeding, vaginal discharge and vaginal pain. Musculoskeletal: Negative. All other systems reviewed and are negative. No past medical history on file. Current Outpatient Medications Medication Sig Dispense Refill nitrofurantoin monohydrate and macrocrystal (MACROBID) 100 mg capsule Take 1 capsule by mouth two times a day with meals for 5 days. 10 capsule 0 No current facility-administered medications for this visit. No past surgical history on file. No family history on file. Social History Tobacco Use Smoking status: Some Days Objective BP 122/72 Pulse 78 Temp 37.2 ?C (98.9 ?F) Resp 16 Wt 86.5 kg (190 lb 11.2 oz) LMP 11/28/2016 SpO2 98% Physical Exam Vitals reviewed. Constitutional: Appearance: Normal appearance. HENT: Head: Normocephalic and atraumatic. Cardiovascular: Rate and Rhythm: Normal rate and regular rhythm. Heart sounds: Normal heart sounds. Pulmonary: Effort: Pulmonary effort is normal. Breath sounds: Normal breath sounds. Abdominal: Palpations: Abdomen is soft. Tenderness: There is abdominal tenderness (mild suprapubic ttp). Skin: General: Skin is warm and dry. Neurological: Mental Status: She is alert. Assessment and Plan ASSESSMENT/PLAN: 1. Urinary frequency - ICD9: 788.41, ICD10: R35.0 acute - UA positive for jacky esterase - Send urine for culture - Begin treatment with Macrobid 100 mg BID for 5 days. Can d/c if urine culture negative - UA DIP, URINE (POC) - URINE CULTURE Dhaval Gonzalez PA-C [facility] 06-07-2024 History of Presen t illness Narrative This note was created using GeoVar[employer]iter. Subjective Honorio Suarez is a 39 year old female. HPI Patient presents with urinary frequency and blood in urine over the past 3 days. Denies abdominal pain. No history of kidney stones. No flank pain or back pain. Denies dysuria. She states she also has endometriosis and sometimes will spot from that. She denies chance of . No fever. No vaginal itching or discharge. Review of Systems Genitourinary: Positive for frequency and hematuria. Negative for dysuria, flank pain, pelvic pain, urgency, vaginal bleeding, vaginal discharge and vaginal pain. Musculoskeletal: Negative. All other systems reviewed and are negative. No past medical history on file. Current Outpatient Medications Medication Sig Dispense Refill nitrofurantoin monohydrate and macrocrystal (MACROBID) 100 mg capsule Take 1 capsule by mouth two times a day with meals for 5 days. 10 capsule 0 No current facility-administered medications for this visit. No past surgical history on file. No family history on file. Social History Tobacco Use Smoking status: Some Days Objective BP 122/72 Pulse 78 Temp 37.2 C (98.9 F) Resp 16 Wt 86.5 kg (190 lb 11.2 oz) LMP 11/28/2016 SpO2 98% Physical Exam Vitals reviewed. Constitutional: Appearance: Normal appearance. HENT: Head: Normocephalic and atraumatic. Cardiovascular: Rate and Rhythm: Normal rate and regular rhythm. Heart sounds: Normal heart sounds. Pulmonary: Effort: Pulmonary effort is normal. Breath sounds: Normal breath sounds. Abdominal: Palpations: Abdomen is soft. Tenderness: There is abdominal tenderness (mild suprapubic ttp). Skin: General: Skin is warm and dry. Neurological: Mental Status: She is alert. Assessment and Plan ASSESSMENT/PLAN: 1. Urinary frequency - ICD9: 788.41, ICD10: R35.0 acute - UA positive for jacky esterase - Send urine for culture - Begin treatment with Macrobid 100 mg BID for 5 days. Can d/c if urine culture negative - UA DIP, URINE (POC) - URINE CULTURE Dhaval Gonzalez PA-C documented in this encounter [facility] 10-10-2023 Evaluation + Plan note Diagnostic Tests PendingHPV Screen, DNA Probe 10/10/23 Future Scheduled TestsMA Mammo Diagnostic Bilateral w/Alfredo 09/22/23US Breast Right Limited 10/16/22MA Mammogram Diagnostic Right w/o Alfredo 09/23/23 [facility] 09-22-2023 Evaluation + Plan note Future Scheduled TestsMA Mammo Diagnostic Bilateral w/Alfredo 09/22/23MA Mammogram Diagnostic Right w/o Alfredo 09/23/23 [facility] 10-16-2022 Evaluation + Plan note Future Scheduled TestsUS Breast Right Limited 10/16/22 [facility] 11-29-2016 Miscellaneous Notes Patient notified ,voiced understanding and will comply Please advise patient that her blood work was unremarkable. CBC shows she may need to eat more iron rich foods. The D- Dimer test for blood clots shows low risk. Will call with Urine culture results. Continue plan of care as discussed in the clinic visit. documented in this encounter [facility] Evaluation + Plan note Future Appointments Appointment Date:07/19/2022 09:45:00 AM Scheduled Provider: Location:[facility] Appointment Type:MA Mammogram Diagnostic Bilateral w/ Zaire Future Scheduled TestsMA Mammo Diagnostic Bilateral w/Alfredo 07/19/22 [facility] Evaluation + Plan note Future Appointments Appointment Date:10/10/2023 10:00:00 AM Scheduled Provider:RANDEE BENZ MD [facility] Appointment Type: OV Annual Exam Future Scheduled TestsUS Breast Right Limited 10/16/22 [facility] Evaluation + Plan note Future Appointments Appointment Date:01/01/2024 10:30:00 AM Scheduled Provider: Location:[facility] Appointment Type:US Breast Right Limited Future Scheduled TestsMA Mammo Diagnostic Bilateral w/Alfredo 09/22/23US Breast Right Limited 01/01/24MA Mammogram Diagnostic Right w/o Alfredo 09/23/23 [facility] Evaluation note Diagnosis Onset Date Abnormal resting ECG findings acute GERD (gastroesophageal reflux disease) acute [facility] Work Phone: Evaluation note* Diagnosis Urinary frequency- Primary documented in this encounter [facility] course Narrative No data available for this section [facility] Discharge instructions No data available for this section [facility] instructions* Name Dates Details How to access health informa tion online Indication:Non-smoker Start:24-Sep-2019 Instruction Type:Patient Education How to access health informa tion online - Detail Indication:Non-smoker Start:24-Sep-2019 Instruction Type:Patient Education Patient Instructions Indication:Non-smoker Start:24-Sep-2019 Instruction Type:Provider Instructions for Treatment Patient Instructions Indication:Dizziness Start:04-Nov-2014 Instruction Type:Provider Instructions for Treatment [facility] Work Phone: instructions* Name Dates Details Patient Instructions Indication:BMI 37.0-37.9, adult Start:02-Aug-2022 Instruction Type:Provider Instructions for Treatment How to Access Health Informa tion Online using Patient Portal and [employer] Apps Indication:BMI 37.0-37.9, adult Start:02-Aug-2022 Instruction Type:Patient Education How to access health informa tion online Indication:Non-smoker Start:24-Sep-2019 Instruction Type:Patient Education How to access health informa tion online - Detail Indication:Non-smoker Start:24-Sep-2019 Instruction Type:Patient Education Patient Instructions Indication:Non-smoker Start:24-Sep-2019 Instruction Type:Provider Instructions for Treatment Patient Instructions Indication:Dizziness Start:04-Nov-2014 Instruction Type:Provider Instructions for Treatment [facility] Work Phone: instructions* Name Dates Details Patient Instructions Indication:BMI 37.0-37.9, adult Start:02-Aug-2022 Instruction Type:Provider Instructions for Treatment How to Access Health Informa tion Online using Patient Portal and [employer] Apps Indication:BMI 37.0-37.9, adult Start:02-Aug-2022 Instruction Type:Patient Education How to access health informa tion online Indication:Non-smoker Start:24-Sep-2019 Instruction Type:Patient Education How to access health informa tion online - Detail Indication:Non-smoker Start:24-Sep-2019 Instruction Type:Patient Education Patient Instructions Indication:Non-smoker Start:24-Sep-2019 Instruction Type:Provider Instructions for Treatment Patient Instructions Indication:Dizziness Start:04-Nov-2014 Instruction Type:Provider Instructions for Treatment [facility] Work Phone: instructions* Name Dates Details Patient Instructions Indication:BMI 36.0-36.9,adult Start:06-Sep-2022 Instruction Type:Provider Instructions for Treatment How to Access Health Informa tion Online using Patient Portal and [employer] Apps Indication:BMI 36.0-36.9,adult Start:06-Sep-2022 Instruction Type:Patient Education Patient Instructions Indication:BMI 37.0-37.9, adult Start:02-Aug-2022 Instruction Type:Provider Instructions for Treatment How to Access Health Informa tion Online using Patient Portal and [employer] Apps Indication:BMI 37.0-37.9, adult Start:02-Aug-2022 Instruction Type:Patient Education How to access health informa tion online Indication:Non-smoker Start:24-Sep-2019 Instruction Type:Patient Education How to access health informa tion online - Detail Indication:Non-smoker Start:24-Sep-2019 Instruction Type:Patient Education Patient Instructions Indication:Non-smoker Start:24-Sep-2019 Instruction Type:Provider Instructions for Treatment Patient Instructions Indication:Dizziness Start:04-Nov-2014 Instruction Type:Provider Instructions for Treatment [facility] Work Phone: instructions* Name Dates Details Patient Instructions Indication:BMI 36.0-36.9,adult Start:06-Sep-2022 Instruction Type:Provider Instructions for Treatment How to Access Health Informa tion Online using Patient Portal and [employer] Apps Indication:BMI 36.0-36.9,adult Start:06-Sep-2022 Instruction Type:Patient Education Patient Instructions Indication:BMI 37.0-37.9, adult Start:02-Aug-2022 Instruction Type:Provider Instructions for Treatment How to Access Health Informa tion Online using Patient Portal and [employer] Apps Indication:BMI 37.0-37.9, adult Start:02-Aug-2022 Instruction Type:Patient Education How to access health informa tion online Indication:Non-smoker Start:24-Sep-2019 Instruction Type:Patient Education How to access health informa tion online - Detail Indication:Non-smoker Start:24-Sep-2019 Instruction Type:Patient Education Patient Instructions Indication:Non-smoker Start:24-Sep-2019 Instruction Type:Provider Instructions for Treatment Patient Instructions Indication:Dizziness Start:04-Nov-2014 Instruction Type:Provider Instructions for Treatment [facility] Work Phone: instructions* Name Dates Details Patient Instructions Indication:BMI 36.0-36.9,adult Start:06-Sep-2022 Instruction Type:Provider Instructions for Treatment How to Access Health Informa tion Online using Patient Portal and [employer] Apps Indication:BMI 36.0-36.9,adult Start:06-Sep-2022 Instruction Type:Patient Education Patient Instructions Indication:BMI 37.0-37.9, adult Start:02-Aug-2022 Instruction Type:Provider Instructions for Treatment How to Access Health Informa tion Online using Patient Portal and [employer] Apps Indication:BMI 37.0-37.9, adult Start:02-Aug-2022 Instruction Type:Patient Education How to access health informa tion online Indication:Non-smoker Start:24-Sep-2019 Instruction Type:Patient Education How to access health informa tion online - Detail Indication:Non-smoker Start:24-Sep-2019 Instruction Type:Patient Education Patient Instructions Indication:Non-smoker Start:24-Sep-2019 Instruction Type:Provider Instructions for Treatment Patient Instructions Indication:Dizziness Start:04-Nov-2014 Instruction Type:Provider Instructions for Treatment [facility] Work Phone: instructions* Name Dates Details Patient Instructions Indication:Weight gain Start:01-Nov-2022 Instruction Type:Provider Instructions for Treatment How to Access Health Informa tion Online using Patient Portal and [employer] Apps Indication:Weight gain Start:01-Nov-2022 Instruction Type:Patient Education Patient Instructions Indication:BMI 36.0-36.9,adult Start:06-Sep-2022 Instruction Type:Provider Instructions for Treatment How to Access Health Informa tion Online using Patient Portal and [employer] Apps Indication:BMI 36.0-36.9,adult Start:06-Sep-2022 Instruction Type:Patient Education Patient Instructions Indication:BMI 37.0-37.9, adult Start:02-Aug-2022 Instruction Type:Provider Instructions for Treatment How to Access Health Informa tion Online using Patient Portal and [employer] Apps Indication:BMI 37.0-37.9, adult Start:02-Aug-2022 Instruction Type:Patient Education How to access health informa tion online Indication:Non-smoker Start:24-Sep-2019 Instruction Type:Patient Education How to access health informa tion online - Detail Indication:Non-smoker Start:24-Sep-2019 Instruction Type:Patient Education Patient Instructions Indication:Non-smoker Start:24-Sep-2019 Instruction Type:Provider Instructions for Treatment Patient Instructions Indication:Dizziness Start:04-Nov-2014 Instruction Type:Provider Instructions for Treatment [facility]; [facility] Work Phone: Instructions* Name Dates Details Patient Instructions Indication:Non-smoker Start:03-Jan-2023 Instruction Type:Provider Instructions for Treatment How to Access Health Informa tion Online using Patient Portal and [employer] Apps Indication:Non-smoker Start:03-Jan-2023 Instruction Type:Patient Education Patient Instructions Indication:Weight gain Start:01-Nov-2022 Instruction Type:Provider Instructions for Treatment How to Access Health Informa tion Online using Patient Portal and [employer] Apps Indication:Weight gain Start:01-Nov-2022 Instruction Type:Patient Education Patient Instructions Indication:BMI 36.0-36.9,adult Start:06-Sep-2022 Instruction Type:Provider Instructions for Treatment How to Access Health Informa tion Online using Patient Portal and [employer] Apps Indication:BMI 36.0-36.9,adult Start:06-Sep-2022 Instruction Type:Patient Education Patient Instructions Indication:BMI 37.0-37.9, adult Start:02-Aug-2022 Instruction Type:Provider Instructions for Treatment How to Access Health Informa tion Online using Patient Portal and 3[employer] Apps Indication:BMI 37.0-37.9, adult Start:02-Aug-2022 Instruction Type:Patient Education How to access health informa tion online Indication:Non-smoker Start:24-Sep-2019 Instruction Type:Patient Education How to access health informa tion online - Detail Indication:Non-smoker Start:24-Sep-2019 Instruction Type:Patient Education Patient Instructions Indication:Non-smoker Start:24-Sep-2019 Instruction Type:Provider Instructions for Treatment Patient Instructions Indication:Dizziness Start:04-Nov-2014 Instruction Type:Provider Instructions for Treatment [facility]; [facility] Work Phone: [employer]PicBadgesions* Name Dates Details Patient Instructions Indication:Non-smoker Start:03-Jan-2023 Instruction Type:Provider Instructions for Treatment How to Access Health Informa tion Online using Patient Portal and [employer] Apps Indication:Non-smoker Start:03-Jan-2023 Instruction Type:Patient Education Patient Instructions Indication:Weight gain Start:01-Nov-2022 Instruction Type:Provider Instructions for Treatment How to Access Health Informa tion Online using Patient Portal and 3[employer] Apps Indication:Weight gain Start:01-Nov-2022 Instruction Type:Patient Education Patient Instructions Indication:BMI 36.0-36.9,adult Start:06-Sep-2022 Instruction Type:Provider Instructions for Treatment How to Access Health Informa tion Online using Patient Portal and [employer] Apps Indication:BMI 36.0-36.9,adult Start:06-Sep-2022 Instruction Type:Patient Education Patient Instructions Indication:BMI 37.0-37.9, adult Start:02-Aug-2022 Instruction Type:Provider Instructions for Treatment How to Access Health Informa tion Online using Patient Portal and 3[employer] Apps Indication:BMI 37.0-37.9, adult Start:02-Aug-2022 Instruction Type:Patient Education How to access health informa tion online Indication:Non-smoker Start:24-Sep-2019 Instruction Type:Patient Education How to access health informa tion online - Detail Indication:Non-smoker Start:24-Sep-2019 Instruction Type:Patient Education Patient Instructions Indication:Non-smoker Start:24-Sep-2019 Instruction Type:Provider Instructions for Treatment Patient Instructions Indication:Dizziness Start:04-Nov-2014 Instruction Type:Provider Instructions for Treatment [facility] Work Phone: progress note No data available for this section [facility] Summary Purpose Family History No Family History Records Found Relationship Condition Age at Onset Recorded Date/T cris Not Specified Diabetes mellitus Unknown Cardiac disease Unknown Unknown Family Member Name Dates Details First Degree Relatives Comments:ETOH, Dm, Emotional prob, Heart/lung dx, HBP, seizures, thyroid dx Status:Active Unknown Family Member Name Dates Details First Degree Relatives Comments:ETOH, Dm, Emotional prob, Heart/lung dx, HBP, seizures, thyroid dx Status:Active Unknown Family Member Name Dates Details First Degree Relatives Comments:ETOH, Dm, Emotional prob, Heart/lung dx, HBP, seizures, thyroid dx Status:Active Unknown Family Member Name Dates Details First Degree Relatives Comments:ETOH, Dm, Emotional prob, Heart/lung dx, HBP, seizures, thyroid dx Status:Active Unknown Family Member Name Dates Details First Degree Relatives Comments:ETOH, Dm, Emotional prob, Heart/lung dx, HBP, seizures, thyroid dx Status:Active Unknown Family Member Name Dates Details First Degree Relatives Comments:ETOH, Dm, Emotional prob, Heart/lung dx, HBP, seizures, thyroid dx Status:Active Unknown Family Member Name Dates Details First Degree Relatives Comments:ETOH, Dm, Emotional prob, Heart/lung dx, HBP, seizures, thyroid dx Status:Active Unknown Family Member Name Dates Details First Degree Relatives Comments:ETOH, Dm, Emotional prob, Heart/lung dx, HBP, seizures, thyroid dx Status:Active Unknown Family Member Name Dates Details First Degree Relatives Comments:ETOH, Dm, Emotional prob, Heart/lung dx, HBP, seizures, thyroid dx Status:Active Unknown Family Member Name Dates Details First Degree Relatives Comments:ETOH, Dm, Emotional prob, Heart/lung dx, HBP, seizures, thyroid dx Status:Active Advance Directives No Advanced Directives Records Found Advance Directive Response Recorded Date/ Time Living Will No June 21 9:40am Power of Cook Frozen Dessert No June 21, 2022 9:40am Chief Complaint and Reason for Visit Chief Complaint INDEGESTION ABN EKG Reason for Visit Abnormal resting ECG findings GERD (gastroesophageal reflux disease) Additional Source Comments INFORMATION SOURCE (unrecogn ized section and content) DATE CREATED AUTHOR 05/31/2018 [facility] DATE CREATED AUTHOR AUTHOR'S ORGANIZ ATION 07/06/2022 [facility] DATE CREATED AUTHOR AUTHOR'S ORGANIZ ATION 11/02/2022 [facility] DATE CREATED AUTHOR AUTHOR'S ORGANIZ ATION 01/12/2024 [facility] ([place] DATE CREATED AUTHOR AUTHOR'S ORGANIZ ATION 06/10/2024 [facility] Source Comments (unrecognize d section and content) In the event this informatio n is protected by the Federal Confidentiality of Alcohol and Drug Abuse Patient Records regulations: The Federal rules restrict any use of the information to criminally investigate or prosecute any alcohol or drug abuse patient.[facility] the event this information is protected by the Federal Confidentiality of Alcohol and Drug Abuse Patient Records regulations: The Federal rules restrict any use of the information to criminally investigate or prosecute any alcohol or drug abuse patient.[facility] Reason for Visit (unrecogniz ed section and content) Reason Onset Date Comments Results 11/29/2016 Reason Comments Urinary Frequency x 3 days Care Team (unrecognized sect ion and content) Care Team Personnel Name: PHYSICIAN, NONE Position: Physician Member Role: Primary Care Physician Care Team Related Persons Name: BILL SUAREZ Address: [place] [address] [place], [place] [phone] Care Team Personnel Name: PHYSICIAN, NONE Position: Physician Member Role: Primary Care Physician Care Team Related Persons Name: BILL SUAREZ Address: [place] [address] [place], [place] [id number] Goals (unrecognized section and content) Goals may be documented in a n alternate section Patient Care team informatio n (unrecognized section and content) 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 This clinical summary was aggregated from multiple sources. Caution should be exercised in using it in the provision of clinical care. This summary normalizes information from multiple sources, and as a consequence, information in this document may materially change the coding, format and clinical context of patient data. In addition, data may be omitted in some cases. CLINICAL DECISIONS SHOULD BE BASED ON THE PRIMARY CLINICAL RECORDS. [facility]. provides no warranty or guarantee of the accuracy or completeness of information in this document.
[2025-03-10 10:43] LABS: Hematocrit 37.0 % (37-47); Hemoglobin 11.5 g/dL (12.0-15.0); Immature Granulocytes Count 0.020 X10^3/uL (0.0-0.0); Mean Corp Hgb Conc 31.1 g/dL (32-36); Mean Corpuscular Volume 88.9 fL (81-99); Mean Platelet Vol. 10.7 fl (6.2-12.0); NRBC Flagged by Analyzer 0 % (0-5); Platelet Count 301 K/mm3 (150-450); RBC Distribution Width CV 14.1 % (11.6-14.6); RBC Distribution Width SD 46.0 fl (35.1-43.9); Red Blood Count 4.16 M/mm3 (4.2-5.4); White Blood Count 5.5 K/mm3 (4.4-11.0)
[2025-03-10 11:02] LABS: Color, Urine Yellow (Yellow); Glucose, Dipstick Normal (Normal); Ketone-Dipstick Negative (Negative); Leukocyte Esterase-Dipstick Negative /ul (Negative); Nitrite-Dipstick Negative (Negative); Occult Blood-Urine Negative /ul (Negative); Protein-Dipstick 15 mg/dl (Negative); Specific Gravity, Urine 1.010 (1.002-1.030); Urine Bilirubin Dipstick Negative (Negative)
[2025-03-10 11:44] LABS: AST(SGOT) 14 U/L (<=31); Alanine Aminotransfer ALT/SGPT 10 U/L (<=34); Albumin, Serum 4.5 g/dL (3.5-5.0); Alkaline Phosphatase 77 U/L (35-104); Anion Gap 12 (5-15); BUN 9 mg/dL (4-19); BUN/Creat Ratio 14.3 RATIO (10-20); Calcium,Total 9.3 mg/dL (7.6-11.0); Carbon Dioxide 20.7 mmol/L (21.0-32.0); Chloride 106 mmol/L (98-108); Ferritin 19 ng/mL (22-378); Globulin 3.0 g/dL (2.2-4.2); Glucose 96 mg/dL (70-99); Iron 60 ug/dL (50-170); Iron Binding Capacity,Total 354 ug/dL (250-450); Iron Binding Capacity,Unsat 294 ug/dL (228-428); Potassium 4.2 mmol/L (3.3-5.1); Vitamin B12 352 pg/mL (180-914)
[2025-03-10 11:59] LABS: Cholesterol 201 mg/dL (<=200); Low Density Lipoprotein Calc. 134 mg/dL; Triglycerides 79 mg/dL; Very Low Density Lipoprotein 16 mg/dL (5-40); cholesterol:hdl ratio screen 3.90
[2025-03-17 16:09] LABS: Methylmalonic Acid Bld 95 nmol/L (0-378)
== END | disposition home or self-care (01) ==
PROVIDERS: PCP Internal Medicine; Referring Provider Internal Medicine; Visit Provider Internal Medicine
DX: D62 Acute posthemorrhagic anemia (principal); Z13.220 Encounter for screening for lipoid disorders
CPT/HCPCS: 36415; 80053; 80061; 81002; 82607; 82728; 83540; 83550; 83921; 85025

== ENCOUNTER → 2025-06-06 | Outpatient (CLI) | payer BC, SELFPAY ==
[2025-06-06 18:15] LABS: Follicle Stimulating Hormone 4.4 mIU/mL
[2025-06-13 12:09] LABS: Testosterone, % Free 1.85 % (0.50-2.80); Testosterone, Free 0.50 ng/dL (0.10-0.85)
== END | disposition home or self-care (01) ==
LOC: CIMLAB 16:38
PROVIDERS: PCP Internal Medicine; Referring Provider Internal Medicine; Visit Provider Internal Medicine
DX: R23.2 Flushing (principal)
CPT/HCPCS: 36415; 83001; 83002; 84402; 84403